=== PATIENT | female | born 1945 | race Caucasian/White ===

== ENCOUNTER 2022-11-03 13:27 | Outpatient (AMB) | payer MEDICARE, SELFPAY ==
[2022-11-03 14:09] VITALS: BP 126/74; PULSE 75; O2SAT 98; BMI 28.1
--- NOTE | 2022-11-03 14:09 | MHC.PC.OV ---
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 Transferring care from Dr Coleman Iniguez([facility]). Medical records have not been requested and have not received. Aboriginal Ceremonial Celebrant Required: No Survey Statistician: Not Required per policy Accompanied by: Self / Same As Patient Allergies No Known Allergies Allergy (Verified 11/09/22 15:50) Medication List - Last Reconciled 11/09/22 by Hitesh Anderson MD ascorbic acid (vitamin C) 500 mg PO DAILY aspirin 1 tab PO DAILY bupropion HCl 300 mg PO DAILY cholecalciferol (vitamin D3) 50 mcg PO DAILY levothyroxine 88 mcg PO DAILY lorazepam 1 mg PO BEDTIME PRN losartan 50 mg PO DAILY melatonin 10 mg PO BEDTIME multivitamin 1 tab PO DAILY Tobacco use date assessed: 11/03/22 Fall risk assessment: No Falls in past year Last assessed Fall Risk: 11/03/22 Dental Screening Dental Screen Date: 11/03/22 Did you have a dental visit in the last 12 months?: No Did you have a dental problem in the last 6 months where you did not have access to dental care?: No 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 She is transferring her care to us as her previous provider has left the area. Patient gives history of hypertrophic cardiomyopathy. She is getting a procedure done at [facility]. Her biomedical engineering director has ordered blood work that she would like done. Apart from this condition patient also suffers from anxiety. 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 1. Little interest or pleasure in doing things: more than half the days 2. Feeling down, depressed, or hopeless: nearly every day 3. Trouble falling or staying asleep, or sleeping too much: nearly every day 4. Feeling tired or having little energy: more than half the days 5. Poor appetite or overeating: not at all 6. Feeling bad about yourself - or that you are a failure or have let yourself or your family down: several days 7. Trouble concentrating on things, such as reading the newspaper or watching television: several days 8. Moving or speaking so slowly that other people could have noticed. Or the opposite - being so fidgety or restless that you have been moving around a lot more than usual: not at all 9. Thoughts that you would be better off or of hurting yourself in some way: nearly every day Total score: 15 Source: Developed by Drs. Wild Payan, Anette Ramirez, Isaiah Harry and colleagues, with an educational yelena from [employer]. AUDIT C Alcohol Use Questionnaire (AUDIT-C) 1. How often do you have a drink containing alcohol?: Monthly or less 2. How many drinks containing alcohol do you have on a typical day when you are drinking?: 1 or 2 Total Score: 1 SUSANNE-7 AMB Questionnaire SUSANNE-7 Date SUSANNE - 7 assessed: 11/03/22 Feeling nervous, anxious, or on edge: 3 = Nearly every day Not being able to stop or control worryin = Nearly every day Worrying too much about different things: 3 = Nearly every day Trouble relaxin = Nearly every day Being so restless that it is hard to sit still: 0 = Not at all Becoming easily annoyed or irritable: 2 = More than half the days Feeling afraid as if something awful might happen: 3 = Nearly every day Total SUSANNE-7 score (0-4 normal; 5-9 mild; 10-14 moderate; 15-21 severe): 17 Source: Developed by Drs. Wild Payan, Anette Ramirez, Isaiah Harry and colleagues, with an educational yelena from [employer]. Physical exam (Primary Care) Vital Signs: Last Vital Signs Pulse 75 11/03/22 14:09 BP 126/74 11/03/22 14:09 Pulse Ox 98 11/03/22 14:09 Oxygen Delivery Method Room Air 11/03/22 14:09 BMI result Body Mass Index 28.1 Tobacco/Smoking Status: Tobacco use Status Tobacco use date assessed 11/03/22 11/03/22 14:27 Patient Tobacco Use Status Former Tobacco user (1986) 11/03/22 14:27 e-Cigarette/Vaping Use Never Used 11/03/22 14:27 PHQ-9: PHQ-9 Score PHQ-9: Total score 15 11/03/22 14:27 Const General: cooperative, healthy appearing and comfortable HENMT Head: Yes normal to inspection and Yes atraumatic Eyes General: appearance normal, both eyes and all related structures Neck Neck: Yes normal visual inspection and Yes full ROM Chest Chest palpation & inspection: normal inspection of the chest and crepitus Resp Effort & Inspection: normal respiratory effort Auscultation: clear to auscultation bilaterally Cardio Jugular venous distension: no JVD Palpation: normal PMI Rate: regular rate Heart sounds: S1 normal heart sound present and S2 normal heart sound present GI Palpation (GI): Soft to palpation, Tenderness to palpation present (GI) and No hepatosplenomegaly present Extrem General: Yes normal to inspection and Yes full ROM Assessment and Plan Assessment & Plan (1) HOCM (hypertrophic obstructive cardiomyopathy): Code(s): I42.1 - Obstructive hypertrophic cardiomyopathy Plan: Blood work has been ordered. Will send the results to the biomedical engineering director. Continue current medications at same dosage. Orders: Orders Basic Metabolic Panel 11/03/22 I42.1 - Obstructive hypertrophic cardiomyopathy Lipid Panel 11/03/22 I42.1 - Obstructive hypertrophic cardiomyopathy Liver Panel 11/03/22 I42.1 - Obstructive hypertrophic cardiomyopathy Thyroid Stimulating Hormone 11/03/22 I42.1 - Obstructive hypertrophic cardiomyopathy Complete Blood Count no Diff 11/03/22 I42.1 - Obstructive hypertrophic cardiomyopathy Coding Level of Care Code New Pt Level 3 (98732) Diagnoses HOCM (hypertrophic obstructive cardiomyopathy) I42.1
== END 2022-11-03 15:04 | disposition home or self-care (01) ==
PROVIDERS: PCP Internal Medicine; Visit Provider Internal Medicine
DX: I42.1 Obstructive hypertrophic cardiomyopathy (principal)
CPT/HCPCS: 99203

== ENCOUNTER 2022-11-03 15:14 | Outpatient (REF) | payer MEDICARE, SELFPAY | END 2022-11-03 15:15 | disposition home or self-care (01) | LOC: HO.LAB 15:14 | PROVIDERS: PCP Internal Medicine; Visit Provider Internal Medicine | DX: I42.1 Obstructive hypertrophic cardiomyopathy (principal) | CPT/HCPCS: 36415; 80048; 80061; 80076; 84443; 85027 ==

== ENCOUNTER 2022-12-27 14:03 | Outpatient (AMB) | payer MEDICARE, SELFPAY ==
[2022-12-27 14:13] VITALS: BP 110/68; PULSE 69; O2SAT 98; BMI 28.7
--- NOTE | 2022-12-27 14:13 | MHC.PC.OV ---
Vital Signs 12/27/22 14:13 Height 5 ft 1.5 in Weight 154 lb 6 oz BMI 28.7 BP 110/68 Blood Pressure Location Lt brachial Position Sitting Pulse 69 Pulse Source Pulse Oximeter Pulse Oximetry (%) 98 Oxygen Delivery Method Room Air Intake Visit Reasons: Post Surgery Cuffer Required: No Accompanied by: Self / Same As Patient Allergies No Known Allergies Allergy (Verified 12/27/22 14:32) Medication List - Last Reconciled 12/27/22 by ARTIE Vega ascorbic acid (vitamin C) 500 mg PO DAILY cholecalciferol (vitamin D3) 50 mcg PO DAILY levothyroxine 88 mcg PO DAILY lorazepam 1 mg PO BEDTIME PRN losartan 50 mg PO DAILY melatonin 10 mg PO BEDTIME multivitamin 1 tab PO DAILY Tobacco use date assessed: 12/27/22 Fall risk assessment: No Falls in past year Last assessed Fall Risk: 12/27/22 Dental Screening Dental Screen Date: 12/27/22 Did you have a dental visit in the last 12 months?: No Did you have a dental problem in the last 6 months where you did not have access to dental care?: No Was dental information given to patient?: No HPI Post Surgery HPI Details Patient is a 77-year-old female who presents today to follow-up post cardiac surgery. Patient of Dr. Anderson, patient reports that she did not know that she will be seeing PRODUCT COMMUNICATIONS MANAGER today. Patient did have alcohol septal ablation by Dr. Castle at [facility] 11/10/2022-no medical records, will request records. Patient reports that then she was seen by her java user interface developer at [facility] Dr. Chin and diagnosed with AFib, patient reports that discharge notes from [facility] did not mention AFib - will also request records from cardiology. Patient reports that she was started on Eliquis by Cardiology in [facility] although she did not start this medication as she is waiting from cardiology to let her know about her recent blood work, encouraged patient to call her Cardiology in regards to this as well. Patient also have Cardiology at [facility] Dr. Jones. PHQ-9 score 15, patient denies SI or HI, patient reports that she is followed by Psychiatry Dr. Weldon - patient reports that Psychiatry mentioned possible TMS. Patient denies shortness of breath or chest pain. She reports still feeling tired after surgery. Patient has an upcoming appointment with [facility] Cardiology 02/23/2023. 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 1. Little interest or pleasure in doing things: more than half the days 2. Feeling down, depressed, or hopeless: nearly every day 3. Trouble falling or staying asleep, or sleeping too much: nearly every day 4. Feeling tired or having little energy: more than half the days 5. Poor appetite or overeating: not at all 6. Feeling bad about yourself - or that you are a failure or have let yourself or your family down: several days 7. Trouble concentrating on things, such as reading the newspaper or watching television: several days 8. Moving or speaking so slowly that other people could have noticed. Or the opposite - being so fidgety or restless that you have been moving around a lot more than usual: not at all 9. Thoughts that you would be better off or of hurting yourself in some way: nearly every day Total score: 15 Depression Screening Interpretation: Positive Depression Screening Follow-up: In treatment 93816 - PHQ-9 Billing: Yes Source: Developed by Drs. Wild Payan, Anette Ramirez, Isaiah Harry and colleagues, with an educational yelena from [employer]. Thrive Questionnaire Date Thrive assessed: 12/27/22 I am a: Patient What is your living situation today?: I have a steady place to live Within the past 12 months, did the food you bought not last and you didn't have the money to get more?: Never true Within the past 12 months, did you worry whether your food would run out before you got money to buy more?: Never true Do you have trouble paying for medicines?: No Do you have trouble getting transportation to medical appointments?: No Do you have trouble paying your heating and electricity bill?: No Do you have trouble taking care of your child, family member or friend?: No Do you have trouble with day-to-day activities such as bathing, preparing meals, shopping, managing finances, etc.?: No Are you currently unemployed and looking for a job?: No Are you interested in more education?: No Please select the resources that you would like help with: None Currently or been in a relationship where the following occur: no concerns reported AUDIT C Alcohol Use Questionnaire (AUDIT-C) 1. How often do you have a drink containing alcohol?: Monthly or less 2. How many drinks containing alcohol do you have on a typical day when you are drinking?: 1 or 2 Total Score: 1 Score Reviewed/Action Taken: No SUSANNE-7 AMB Questionnaire SUSANNE-7 Date SUSANNE - 7 assessed: 12/27/22 Feeling nervous, anxious, or on edge: 3 = Nearly every day Not being able to stop or control worryin = Nearly every day Worrying too much about different things: 3 = Nearly every day Trouble relaxin = Nearly every day Being so restless that it is hard to sit still: 0 = Not at all Becoming easily annoyed or irritable: 2 = More than half the days Feeling afraid as if something awful might happen: 3 = Nearly every day Total SUSANNE-7 score (0-4 normal; 5-9 mild; 10-14 moderate; 15-21 severe): 17 Source: Developed by Drs. Wild Payan, Anette Ramirez, Isaiah Harry and colleagues, with an educational yelena from [employer]. SUSANNE-7 Assessment Billing SUSANNE-7 Assessment Tool: SUSANNE-7 Assessment 10237 Review of Systems Const Denies body aches, Denies chills, Reports fatigue, Denies fever(s) and Denies headache(s) ENT Denies dizziness, Denies otalgia, Denies headache(s), Denies nasal discharge, Denies sinus pain and Denies sore throat Card Denies chest pain, Denies edema, Denies lightheadedness and Denies dyspnea Resp Denies cough, Denies dyspnea and Denies wheezing GI Denies abdominal pain Denies dysuria Musc Denies myalgias Skin/Breast Denies rash Neuro Denies dizziness and Denies headache(s) Endo Reports fatigue Aller/Immun Denies wheezing Physical exam (Primary Care) Vital Signs: Last Vital Signs Pulse 69 12/27/22 14:13 BP 110/68 12/27/22 14:13 Pulse Ox 98 12/27/22 14:13 Oxygen Delivery Method Room Air 12/27/22 14:13 BMI result Body Mass Index 28.7 Tobacco/Smoking Status: Tobacco use Status Tobacco use date assessed 12/27/22 12/27/22 14:24 Patient Tobacco Use Status Former Tobacco user (1986) 12/27/22 14:24 e-Cigarette/Vaping Use Never Used 12/27/22 14:24 PHQ-9: PHQ-9 Score PHQ-9: Total score 15 12/27/22 14:24 Depression Screening Interpretation: Positive Depression Screening Follow-up: In treatment Thrive Assessment: Date of Thrive Assessment Date Thrive assessed 12/27/22 12/27/22 14:24 Currently or been in a relationship where the following occur: no concerns reported Const General: cooperative and no acute distress Orientation/consciousness: patient oriented x3 HENMT Head: Yes normocephalic and Yes atraumatic Face and sinus: Yes sinuses nontender Mouth: oropharynx normal and moist mucous membranes Throat: Yes posterior oropharynx normal Eyes General: appearance normal, both eyes and all related structures Pupils: Equal, round and reactive pupils present Neck Neck: Yes normal visual inspection, Yes full ROM and Yes no lymphadenopathy Resp Effort & Inspection: normal respiratory effort and able to speak in complete sentences Auscultation: clear to auscultation bilaterally, no crackles, no rales, no rhonchi and no wheezes Cardio Rate: regular rate Rhythm: regular rhythm Heart sounds: S1 normal heart sound present, S2 normal heart sound present and no murmurs Peripheral pulses: radial pulses present on the right GI Auscultation: normal bowel sounds Skin General skin exam: no rashes or lesions noted Neuro General: patient oriented x3 Cranial nerves: Yes Equal, round and reactive pupils present Gait exam (Neuro): Normal gait present Extrem General: Yes full ROM and No edema Assessment and Plan Assessment & Plan (1) HOCM (hypertrophic obstructive cardiomyopathy): Comment: alcohol septal ablation by Dr. Castle at [facility] 11/10/2022 Code(s): I42.1 - Obstructive hypertrophic cardiomyopathy Plan: Patient did have alcohol septal ablation by Dr. Castle at [facility] 11/10/2022-no medical records, will request records.? Patient reports that then she was seen by her java user interface developer at [facility] Dr. Chin and diagnosed with AFib, patient reports that discharge notes from [facility] did not mention AFib - will also request records from cardiology.? Patient reports that she was started on Eliquis by Cardiology in [facility] although she did not start this medication as she is waiting from cardiology to let her know about her recent blood work, encouraged patient to call her Cardiology in regards to this as well.? Patient agreed with the plan. (2) Depression: Code(s): F32.A - Depression, unspecified Qualifiers: Depression Type: other depression Qualified Code(s): F32.89 - Other specified depressive episodes Plan: Continue to follow-up with Psychiatry Dr. Weldon Patient denies SI or HI Not interested in pharmacological intervention (3) Anxiety: Code(s): F41.9 - Anxiety disorder, unspecified Plan: Continue to follow-up with Psychiatry Dr. Weldon Plan Keep appointment with PCP as scheduled or follow-up sooner as needed. Coding Level of Care Code Est Pt Level 3 (96054) Diagnoses HOCM (hypertrophic obstructive cardiomyopathy) I42.1 Depression F32.89 Depression Type: other depression Anxiety F41.9 Additional Codes SUSANNE-7 Assessment Billing - SUSANNE-7 Assessment Tool: SUSANNE-7 Assessment [id number] ([id number])
== END 2022-12-27 14:55 | disposition home or self-care (01) ==
PROVIDERS: PCP Internal Medicine; Visit Provider Nurse Practitioner Family
DX: I42.1 Obstructive hypertrophic cardiomyopathy (principal); F32.89 Other specified depressive episodes; F41.9 Anxiety disorder, unspecified
CPT/HCPCS: 99213

== ENCOUNTER 2023-01-10 12:43 | Inpatient (IN) | payer MEDICARE, SELFPAY ==
[2023-01-10 12:59] VITALS: BP 146/77; PULSE 72; RESP 18; TEMP 36.9; O2SAT 97; BMI 28.8
--- NOTE | 2023-01-10 13:00 | ED_ITS ---
HPI - Psych General Chief Complaint: Psychiatric Symptoms Stated Complaint: crisis Time Seen by Provider: 01/10/23 13:26 Source: patient, RN notes reviewed and old records reviewed Mode of arrival: ambulatory Limitations: no limitations History of Present Illness HPI Narrative: This 77-year-old female presents for evaluation of suicidal ideation. Patient has a medical history significant for hypertrophic cardiomyopathy, paroxysmal atrial fibrillation, anxiety and depression She reports that her physical health has been declining since March when she was diagnosed with hypertrophic cardiomyopathy She reports a few months ago she was diagnosed with paroxysmal AFib Patient reports that due to her medical complications she is not as active as she was even last year She feels sedentary and like she has no brittany in life She states ?I am 77 years old I do not know why you can't just let me . ? She denies any specific plan to me. She expresses suicidality, however. She reports that a community criminal justice social worker encouraged her to come to the hospital for possible admission to the geriatric psych floor. Patient also indicates that she is not happy with her current housing situation Related Data Home Medications Medication Instructions Recorded Confirmed levothyroxine 88 mcg tablet 88 mcg PO DAILY 01/10/23 01/10/23 lorazepam 0.5 mg tablet 0.5 mg PO BID PRN anxiety 01/10/23 01/10/23 losartan 50 mg tablet 50 mg PO DAILY 01/10/23 01/10/23 melatonin 10 mg tablet 10 mg PO BEDTIME PRN Insomnia 01/10/23 01/10/23 Allergies Allergy/AdvReac Type Severity Reaction Status Date / Time No Known Allergies Allergy Verified 01/10/23 12:59 Review of Systems 2 Constitutional: Constitutional: Denies chills, Denies fever(s), Denies headache(s), Reports weakness and Reports weight gain Eyes: Eyes: Denies blurry vision ENT: Denies headache(s) Cardiovascular: Cardiovascular: Denies dyspnea Respiratory: Respiratory: Denies cough and Denies dyspnea Gastrointestinal: Gastrointestinal: Denies abdominal pain Genitourinary: Genitourinary: Denies difficulty voiding Musculoskeletal: Musculoskeletal: Denies back pain Integumentary/Breasts: Skin/Breast: Denies rash Neurologic: Denies headache(s) and Reports weakness PMFSH Social History Social History Advance Directives: No Advance Directives Information Provided: No Physical Exam 2 Vital Signs: Vital Signs: Last Vital Signs Temp 98.4 F 01/10/23 12:59 Pulse 72 01/10/23 12:59 Resp 18 01/10/23 14:12 BP 146/77 H 01/10/23 12:59 Pulse Ox 97 01/10/23 12:59 O2 Del Method Room Air 01/10/23 12:59 BMI result Body Mass Index 28.8 Const: General: healthy appearing, comfortable, no acute distress, alert and awake Nutritional Appearance: well nourished Orientation/consciousness: p atient oriented x3 HEENT: Head: Yes normocephalic and Yes atraumatic Eyes: Eyelids: Yes eyelids normal Conjunctivae: conjunctivae normal S clerae: sclerae normal Corneas: corneas normal Pupils: Equal, round and reactive pupils present EOM: EOMs intact bilaterally Neck: Neck: Yes full ROM Resp: Effort & Inspection: normal respiratory effort, able to speak in complete sentences and not labored Cardio: Rate: regular rate Rhythm: regular rhythm Skin: General skin exam: elasticity normal Neuro: General: patient oriented x3 Cranial nerves: Yes Equal, round and reactive pupils present and Yes Bilaterally intact EOM present Cognition (Neuro): normal cognition Course Course Course Narrative: RME: 77yo F w/no sig PMHx presenting to the ED c/o SI, I don't want to live anymore, I cannot handle my life. Reports medical crises. Reports SI w/desire for medical assisted suicide or to be injected w/Fentanyl or Hospice, but admits shes too afraid to do anything herself EKG, Labs, Tox screen, CARE team consult ordered Full HPI, ROS and PE to be performed by primary ED provider. Reevaluation(s) Reevaluation #1: Patient will be admitted to the psychiatric service for worsening depression with suicidal ideation Time: 18:31 Medical Decision Making Medical Decision Making MDM Narrative: 77-year-old female presents for evaluation of passive suicidal ideation. Her suicidal ideation seems to stem from her chronic medical issues. She denies any current chest pain or shortness of breath. She reports that she was recently diagnosed with atrial fibrillation but has not started taking her Eliquis because ?I just have a lot of questions at any to be answered before start taking them. ? Plan for medical clearance and care team evaluation for suicidal ideation. The patient's EKG is nonischemic Differential Diagnosis Differential Diagnoses: The differential diagnosis associated with the presentation includes Depression Suicidal ideation Bipolar disorder Anxiety Paroxysmal AFib Lab Data 01/10/23 14:04 01/10/23 14:04 Labs: Lab Results 01/10/23 01/10/23 01/10/23 Range/Units 13:42 14:04 14:51 WBC 8.5 (4.8-10.8) X10*3/uL RBC 4.58 (4.20-5.50) X10*6/uL Hgb 13.3 (12.0-16.0) g/dl Hct 38.4 (37.0-47.0) % MCV 83.8 (80.0-98.0) fL MCH 29.0 (27.0-33.0) pg MCHC 34.6 (31.0-35.0) g/dl RDW 14.7 (11.0-16.0) % Plt Count TNP MPV Not Reportable Immature Gran % (Auto) 0.6 H (0.0-0.4) % Neut % (Auto) 69.8 (45-73) % Lymph % (Auto) 22.6 (20-40) % [place] % (Auto) 5.2 (2-11) % Eos % (Auto) 1.1 (0-4) % Baso % (Auto) 0.7 (0-2) % Lymph # (Auto) 1.9 (1.2-4.9) X10*3/uL [place] # (Auto) 0.4 (0.1-1.2) X10*3/uL Eos # (Auto) 0.1 (0.0-0.4) X10*3/uL Baso # (Auto) 0.1 (0.0-0.2) X10*3/uL Abs Immat Gran (auto) 0.05 H (0.00-0.03) X10*3/uL Absolute Neuts (auto) 6.0 (2.0-8.3) x10*3/uL Absolute Nucleated RBC 0.000 (0.0-0.012) X10*3/uL Nucleated RBC % (auto) 0.0 (0.0-0.2) /100WBC Smear Tech's Comments VERIFIED Sodium 142 (135-145) mmol/L Potassium 3.8 (3.3-5.1) mmol/L Chloride 113 H (96-108) mmol/L Carbon Dioxide 21 L (22-29) mmol/L Anion Gap 12 (12-20) BUN 19 H (9-16) mg/dL Creatinine 0.87 (0.5-1.4) mg/dL Estim Creat Clear Calc 47.0 Estimated GFR > 60 Random Glucose 131 H (60-115) mg/dL Calcium 9.2 (8.4-10.2) mg/dL Total Bilirubin 0.6 (0.0-1.0) mg/dL Direct Bilirubin 0.2 (0.0-0.5) mg/dL AST 20 (5-31) U/L ALT 20 (0-31) U/L Alkaline Phosphatase 75 (39-117) U/L Total Protein 6.7 (6.5-8.0) g/dL Albumin 3.9 (3.5-5.0) g/dL Urine Color Yellow Urine Appearance Clear Urine pH 5.5 (5.0-9.0) Ur Specific [place] 1.020 (1.005-1.025) Urine Protein Negative (Neg-Trace) mg/dL Urine Glucose (UA) Negative (Negative) mg/dL Urine Ketones Negative (Negative) mg/dL Urine Blood Negative (Negative) Urine Nitrite Negative (Negative) Ur Leukocyte Esterase Small (1+) H (Negative) Urine RBC 3-5 H (0-2) /HPF Urine WBC 6-10 H (0-5) /HPF Ur Squamous Epith Cells 3-5 (0-2) /HPF Urine Bacteria None Seen (None Seen) Hyaline Casts 0-2 (0-2) /LPF Salicylates < 5.0 L (15-30) mg/dL Urine Opiates Screen Not Detected (Not Detect) Urine Fentanyl Screen Not Detected (Not Detect) Acetaminophen < 17 (<30) mcg/mL Ur Barbiturates Screen Not Detected (Not Detect) Ur Phencyclidine Scrn Not Detected (Not Detect) Ur Amphetamines Screen Not Detected (Not Detect) U Benzodiazepines Scrn Not Detected (Not Detect) Urine Cocaine Screen Not Detected (Not Detect) U Marijuana (THC) Screen Not Detected (Not Detect) Ethyl Alcohol < 10 mg/dL COVID-19 ([facility]) Negative (Negative) COVID-19 Clin Com See Note Independent Interpretation I performed an independent interpretation of an: EKG (Sinus rhythm with a rate of 73 beats per minute. Several premature atrial complexes noted. No acute ischemia) Discharge Plan Discharge Clinical Impression: Suicidal ideation Patient Disposition: Admitted As Inpatient Interventions: [place]-Suicide Risk Severity Scale Last Done: 01/10/23 14:12
--- NOTE | 2023-01-10 13:06 | ECG_ITS ---
Test Reason : CRISIS Blood Pressure : / mmHG Vent. Rate : 073 BPM Atrial Rate : 073 BPM P-R Int : 140 ms QRS Dur : 118 ms QT Int : 430 ms P-R-T Axes : 065 017 082 degrees QTc Int : 473 ms Sinus rhythm with Premature atrial complexes Possible Left atrial enlargement Right bundle branch block Abnormal ECG No previous ECGs available Referred By: Camilla Rodriges Electronically Signed By:DEMARCUS DARDEN
[2023-01-10 13:51] LABS: Appearance Urine Clear; Color Urine Yellow; Glucose Urine UA Negative (Negative); Leukocyte Esterase Urine Small (1+) (Negative); Nitrite Urine Negative (Negative); PH 5.5 (5.0-9.0); UMIC TRIGGER UACC YES; Urine Blood Negative (Negative); Urine Ketones Negative (Negative); Urine Protein Negative (Neg-Trace)
[2023-01-10 13:56] LABS: Amphetamine Screen Urine Not Detected (Not Detect); Bacteria Urine None Seen (None Seen); Barbiturates, Urine Not Detected (Not Detect); Benzodiazepines Screen Urine Not Detected (Not Detect); Cannabinoid Screen Urine Not Detected (Not Detect); Cocaine Screen Urine Not Detected (Not Detect); Fentanyl, urine Not Detected (Not Detect); Hyaline Casts Urine 0-2 /LPF (0-2); Opiate Screen Urine Not Detected (Not Detect); Phencyclidine Screen Urine Not Detected (Not Detect); UACC Culture Trigger YES
[2023-01-10 14:12] VITALS: RESP 18
[2023-01-10 14:12] LABS: Basophils Absolute Auto 0.1 X10*3/uL (0.0-0.2); Basophils Percent Auto 0.7 % (0-2); Eosinophils Absolute Auto 0.1 X10*3/uL (0.0-0.4); Eosinophils Percent Auto 1.1 % (0-4); Hematocrit 38.4 % (37.0-47.0); Hemoglobin 13.3 g/dl (12.0-16.0); Imm Gran Abs Auto 0.05 X10*3/uL (0.00-0.03); Imm Gran Pct Auto 0.6 % (0.0-0.4); Lymphocytes Absolute Auto 1.9 X10*3/uL (1.2-4.9); Lymphocytes Percent Auto 22.6 % (20-40); MANUAL DIFF FLAG SCAN; Mean Corpuscular HGB Conc 34.6 g/dl (31.0-35.0); Mean Corpuscular Volume 83.8 fL (80.0-98.0); Monocytes Absolute Auto 0.4 X10*3/uL (0.1-1.2); Monocytes Percent Auto 5.2 % (2-11); Neutrophils Percent Auto 69.8 % (45-73); PLT CLUMP 1; Red Blood Count 4.58 X10*6/uL (4.20-5.50); Red Cell Distribution Width 14.7 % (11.0-16.0); SCAN SMEAR FLAG 1
[2023-01-10 14:29] LABS: Acetaminophen LAB < 17 mcg/mL (<30); Alanine Aminotransferase 20 U/L (0-31); Albumin Level 3.9 g/dL (3.5-5.0); Alkaline Phosphatase 75 U/L (39-117); Anion Gap 12 (12-20); Aspartate Amino Transferase 20 U/L (5-31); Bilirubin Direct 0.2 mg/dL (0.0-0.5); Bilirubin Total 0.6 mg/dL (0.0-1.0); Blood Urea Nitrogen 19 mg/dL (9-16); Calcium 9.2 mg/dL (8.4-10.2); Carbon Dioxide 21 mmol/L (22-29); Chloride 113 mmol/L (96-108); Estimated Glomerular Filt Rate > 60; Ethanol < 10 mg/dL; Glucose Random 131 mg/dL (60-115); Potassium 3.8 mmol/L (3.3-5.1); Salicylate < 5.0 mg/dL (15-30); Sodium 142 mmol/L (135-145); Total Protein 6.7 g/dL (6.5-8.0)
[2023-01-10 14:38] LABS: White Blood Count 8.5 X10*3/uL (4.8-10.8)
[2023-01-10 14:39] LABS: SLIDE REVIEW VERIFIED
[2023-01-10 15:12] LABS: COVID-19 Test Negative (Negative); IDNOW Serial# 6674DD1D
--- NOTE | 2023-01-10 15:50 | PC.NURSE ---
Radha self presented to the emergency dept after stating she had a follow up phone call with [facility] after a recent trip to the emergency dept at [facility] for chest pain. Radha reports she was telling them that she was feeling hopeless and that she feels like just dying . Radha follows that up with stating she would not be able to do that to herself but wishes there was assisted suicide here as she feels like her heart isn't 100% and she doesn't feel as able to do all the things she used to enjoy. Radha has been calm and cooperative while on the unit. Steady gait and Radha is able to perform all of own ADL's. Radha verbalizes feeling like she would benefit from an admission on the older adult unit .
--- NOTE | 2023-01-10 17:39 | MHC.CARE ---
[employer] prior auth was requested from [employer] crisis.
[2023-01-10] MEDS: Psyllium seed 3.7 GM PACKET PO (19:34)
[2023-01-10 21:52] VITALS: BP 142/68; PULSE 69; RESP 17; TEMP 36.6
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
[2023-01-11] MEDS: Levothyroxine Sodium 88 MCG TABLET PO (06:10)
--- NOTE | 2023-01-11 08:48 | HO.PSYADMNOT ---
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 According to the crisis assessment, the patient was assessed for exacerbation of depressive symptoms and possible suicidality and next day did a follow-up and decided to call emergency services and transfer her into the emergency room for assessment. According to the crisis team, she had several losses, several members of 1st social network has in the last 6 years, her medical condition has worsened and now recently she has a cardiac condition that has impaired her to function properly in the community. When she was assessed by crisis, she reported that she wants to with dignity and she was thinking assisted suicide but she did not have a specific plan or intent. On interview, the patient reported that in the last 6 years several members of her social network such as friends and family have . She does not have children and she does not have a current partner. Also, she has some conflicts with her current landlord. She admitted that she has been struggling with depression for several years and she has been on treatment as an outpatient most of her adult night. Also she stated that she has PTSD for childhood trauma. She stated that she has hypertrophic cardiomyopathy and she recently had a procedure for ablation of AFib up. Since then, she reported that her capacity to walk or do activities of daily life have lowered. She adamantly denies suicidal ideation, she is able to contract for safety and she denies psychotic symptoms. She stated that she follows treatment with Dr. Luis Shore and she saw him 2 months ago. She stated that she has tried several antidepressants in the past and the last time that she was taking medications was Wellbutrin with poor infectivity. She has tried several SSRIs but she has never tried Cymbalta or Remeron. She was able to contract for safety in the facility. During the interview, the patient reported that she was feeling very distressed and angry since she expected that the facility would be more accommodating to her needs. She asked for a transferred to [facility]. I had permission to contact her primary psychiatrist and I called her doctor. Dr. Shore reported a long history of depression and confirm her long history of dysphoria, he stated that she had never been suicidal in the past and she has not tried Cymbalta. Past Psychiatric History: Never admitted into the hospital, she had been following outpatient services, her outpatient psychiatrist is Dr. Shore Medical Evaluation Reviewed: Yes [facility] Medical History (Updated 01/11/23 @ 15:24 by Terell Ye) Anxiety and depression Hypothyroidism Osteoporosis Paroxysmal atrial fibrillation Hypertension Family History: Denies Social History: Single, with no children, limited social support in the community Substance History: Denies Trauma History: Reports childhood trauma. Refused to elaborate Diagnostics Vital Signs (24Hr): Vital Signs - 24 hr 01/10/23 12:59 01/10/23 14:12 01/10/23 21:52 Temperature 98.4 F 97.9 F Pulse Rate 72 69 Respiratory Rate 18 18 17 Blood Pressure 146/77 H 142/68 H Pulse Oximetry 97 Oxygen Delivery Method Room Air Room Air BMI result Body Mass Index 28.8 Labs 01/10/23 14:04 01/10/23 14:04 Labs: Laboratory Results - last 48 hr 01/10/23 01/10/23 01/10/23 13:42 14:04 14:51 WBC 8.5 RBC 4.58 Hgb 13.3 Hct 38.4 MCV 83.8 MCH 29.0 MCHC 34.6 RDW 14.7 Plt Count TNP MPV Not Reportable Immature Gran % (Auto) 0.6 H Neut % (Auto) 69.8 Lymph % (Auto) 22.6 [place] % (Auto) 5.2 Eos % (Auto) 1.1 Baso % (Auto) 0.7 Lymph # (Auto) 1.9 [place] # (Auto) 0.4 Eos # (Auto) 0.1 Baso # (Auto) 0.1 Abs Immat Gran (auto) 0.05 H Absolute Neuts (auto) 6.0 Absolute Nucleated RBC 0.000 Nucleated RBC % (auto) 0.0 Smear Tech's Comments VERIFIED Sodium 142 Potassium 3.8 Chloride 113 H Carbon Dioxide 21 L Anion Gap 12 BUN 19 H Creatinine 0.87 Estim Creat Clear Calc 47.0 Estimated GFR > 60 Random Glucose 131 H Calcium 9.2 Total Bilirubin 0.6 Direct Bilirubin 0.2 AST 20 ALT 20 Alkaline Phosphatase 75 Total Protein 6.7 Albumin 3.9 Urine Color Yellow Urine Appearance Clear Urine pH 5.5 Ur Specific [place] 1.020 Urine Protein Negative Urine Glucose (UA) Negative Urine Ketones Negative Urine Blood Negative Urine Nitrite Negative Ur Leukocyte Esterase Small (1+) H Urine RBC 3-5 H Urine WBC 6-10 H Ur Squamous Epith Cells 3-5 Urine Bacteria None Seen Hyaline Casts 0-2 Salicylates < 5.0 L Urine Opiates Screen Not Detected Urine Fentanyl Screen Not Detected Acetaminophen < 17 Ur Barbiturates Screen Not Detected Ur Phencyclidine Scrn Not Detected Ur Amphetamines Screen Not Detected U Benzodiazepines Scrn Not Detected Urine Cocaine Screen Not Detected U Marijuana (THC) Screen Not Detected Ethyl Alcohol < 10 COVID-19 ([facility]) Negative COVID-19 Clin Com See Note Meds/Allergies Meds Home Medications Medication Instructions Recorded Confirmed Type levothyroxine 88 mcg tablet 88 mcg PO DAILY 01/10/23 01/10/23 History lorazepam 0.5 mg tablet 0.5 mg PO BID PRN anxiety 01/10/23 01/10/23 History losartan 50 mg tablet 50 mg PO DAILY 01/10/23 01/10/23 History melatonin 10 mg tablet 10 mg PO BEDTIME PRN Insomnia 01/10/23 01/10/23 History Allergies Allergies Allergy/AdvReac Type Severity Reaction Status Date / Time No Known Allergies Allergy Verified 01/10/23 12:59 Mental Status Exam Mental Status Exam Patient Appearance: Well Grooomed Patient Orientation: Person, Place, Time and Situation Level of Consciousness: Awake and Appropriate Patient Behavior: Guarded and Passive Mood Description: Calm Affect Description: Constricted Patient Cognition Impaired: Yes Ability to Follow Directions: Good Speech Pattern: Clear Hallucinations: None Delusions: Not Present Thought Process: Linear Thought Content: positive for Circumstantial Judgement: Fair Assessment & Plan Assessment & Plan (1) Major depressive disorder: Status: Acute Code(s): F32.9 - Major depressive disorder, single episode, unspecified (2) Posttraumatic stress disorder: Status: Acute Code(s): F43.10 - Post-traumatic stress disorder, unspecified (3) Personality disorder: Status: Acute Code(s): F60.9 - Personality disorder, unspecified Plan The patient is an elderly female with a past history of major depressive disorder and PTSD who was brought into the facility for exacerbation of depression with suicide passive suicidal ideation in the context of worsening of her medical conditions and lack of social support. At the moment of the interview the patient denies active suicidal ideation, she is able to contract for safety and she wanted to be discharged. Plan 1. We ready gather collateral information from her outpatient psychiatrist. She does not have prior history of suicidal ideation. 2. We discussed risks, benefits, side-effects and alternatives and she agreed to start Cymbalta 20 mg p.o. daily. 3. Start working on discharge plan. 4. Fifteen minutes checks since the patient is not actively suicidal. Patient educated on: diagnosis and therapeutic strategies Informed Consent: understands Reason for continued inpatient stay Substantial Risk for: inability to function, rapid decompensation and med/psych decompensation Statement Statement: I have reviewed the history and physical and performed a pertinent examination on my patient. No changes have occurred unless specified. If the History and Physical was not performed prior to admission, the Hospitalist's service will be consulted for completing the admission physical. Time Spent With Patient Time: Total time managing care of this patient today __45__ minutes.
[2023-01-11 10:33] VITALS: BP 175/86; PULSE 76; RESP 16; TEMP 36.6; O2SAT 96
--- NOTE | 2023-01-11 12:28 | P.CONHOSP_ITS ---
History of Present Illness Data of Consult Service Date: 01/11/23 Requesting physician: Terell Ye Primary Care Provider: Hitesh Anderson MD [facility] Reason for consult: afib medication evaluation 77-year-old female with history of HOCM, paroxysmal atrial fibrillation, hypothyroidism, osteoporosis, history NSTEMI, and anxiety depression admitted to Geriatric Psychiatry with consult placed to hospitalist service for medication evaluation for atrial fibrillation. The patient tells me and records reviewed from [facility] that she underwent cardiac catheterization on 04/21 due to NSTEMI. Cardiac catheterization revealed minimal luminal irregularities. Echocardiogram during that admission showed normal LV size with hyperdynamic systolic function with EF 70-80%. There was severely increased wall thickness more prominent in the interventricular septum with moderate mitral regurgitation and mild increase in pulmonary artery pressure. Cardiology recommended 7 day loop monitor. Following the cardiac catheterization was noted to have new onset atrial fibrillation and converted back to normal sinus rhythm. It was elected to hold off on anticoagulation until loop recorder studies were performed outpatient. She has been following with [facility] (Alisha) as well as [facility] (Altagracia). About two months ago underwent alcohol septal ablation at [facility]. After procedure again went into atrial fibrillation. I do not have records available from this procedure/clinic. [facility] cardiology then recommended eliquis, but patient has not started taking medication due to concerns and wishes to speak with the knot saw operator at [facility]. She is not on rate control meds but rate has been well controlled in the 60-70 and EKG shows NSR, rate 73 with PACs and RBBB. She denies any lightheadedness, palpitations, shortness of breath, or chest pains. She denies any GI bleeding in the last 3 months, denies any history intracranial hemorrhage, no known clotting/bleeding disorders, no recurrent falls. Review of Systems 2 Review of Systems: General: No fevers, malaise, unintentional weight loss HEENT: No epistaxis Cardiovascular: No chest pain, palpitations, or leg edema Respiratory: No shortness of breath, wheezing, cough GI: No melena, hematochezia, hematemesis Skin: No easy bruisability [facility], [facility] Medical History (Updated 01/11/23 @ 13:20 by REAL Hewitt) Anxiety and depression Hypothyroidism Osteoporosis Paroxysmal atrial fibrillation Hypertension Social History Household Members: None Housing: Other Housing Other:: patient states she is renting 2 rooms in a commune Do you presently have visiting nurse or other home services: No Patient Tobacco Use Status: Former Tobacco user Tobacco use type: Cigarette Smoked in Last 30 Days: No e-Cigarette/Vaping Use: Never Used Patient Interested in Nicotine Replacement: No Patient Given Instructions on How to Stop Smoking: No Date Education Initiated: 01/10/23 Second Hand Smoke Exposure: No Use of substances other than those prescribed or required for medical reasons: No Currently Displaying Signs/Symptoms of Drug Intoxication Withdrawal: No Any prior treatment program specific to substance use: No Have you been hit, kicked, punched, or otherwise hurt by someone within the past year? If so, by whom?: No Do you feel safe in your current relationship?: No Current Relationship Is there a partner from a previous relationship who is making you feel unsafe now?: No Are you made to feel afraid or neglected: No Spiritual Healthcare Practices: unknown Advance Directives: No Advance Directives Information Provided: No Do you have thoughts of harming others: None Do you have a plan to hurt others: No Plan Recently lost weight without trying: No Eating poorly because of decreased appetite: No Nutrition Risks: Binging/Purging Patient : No : No Poor oral hygiene: No Meds Allergies Allergy/AdvReac Type Severity Reaction Status Date / Time No Known Allergies Allergy Verified 01/10/23 12:59 Active Medications: Current Medications Acetaminophen (Acetaminophen 325 Mg Tablet) 650 mg PO Q6H PRN PRN Reason: Headache/Pain Mild Scale (1-3) Al Hydroxide/Mg Hydroxide (Magnesium Hydrox/Alum Hydrox 30 Ml Oral.Susp) 30 ml PO Q6H PRN PRN Reason: Heartburn/Nausea Levothyroxine Sodium (Levothyroxine Sodium 88 Mcg Tablet) 88 mcg PO DAILY@0600 [facility] Last Admin: 01/11/23 06:10 Dose: 88 mcg Lorazepam (Lorazepam 0.5 Mg Tablet) 0.5 mg PO BID PRN PRN Reason: anxiety Losartan Potassium (Losartan Potassium 50 Mg Tablet) 50 mg PO DAILY [facility]; Protocol Magnesium Hydroxide (Milk Of Magnesia 30 Ml Oral.Susp) 30 ml PO DAILY PRN PRN Reason: Constipation Melatonin (Melatonin 3 Mg Tablet) 9 mg PO BEDTIME PRN PRN Reason: Insomnia Trazodone HCl (Trazodone Hcl 25 Mg Halftab) 25 mg PO BEDTIME MRX1 PRN PRN Reason: Insomnia Home Medications Medication Instructions Recorded Confirmed Last Taken Type levothyroxine 88 mcg tablet 88 mcg PO DAILY 01/10/23 01/10/23 Unknown History lorazepam 0.5 mg tablet 0.5 mg PO BID PRN anxiety 01/10/23 01/10/23 Unknown History losartan 50 mg tablet 50 mg PO DAILY 01/10/23 01/10/23 Unknown History melatonin 10 mg tablet 10 mg PO BEDTIME PRN Insomnia 01/10/23 01/10/23 Unknown History Physical Exam 2 Vital Signs and Narrative: Vital Signs: Last Vital Signs Temp 97.8 F 01/11/23 10:33 Pulse 76 01/11/23 10:33 Resp 16 01/11/23 10:33 BP 175/86 H 01/11/23 10:33 Pulse Ox 96 01/11/23 10:33 O2 Del Method Room Air 01/11/23 10:33 BMI result Body Mass Index 28.8 Constitutional - Awake and Alert, No apparent distress Eyes - PERRLA, EOMI Cardiovascular - S1S2, RRR, No edema Respiratory - Normal lung expansion, Normal respiratory effort, No respiratory distress Extremities - no calf tenderness bilaterally, no swelling Skin - Warm/Dry Neurological - Alert & oriented x3 Results Labs 01/10/23 14:04 01/10/23 14:04 Labs: Laboratory Results - last 24 hr 01/10/23 01/10/23 01/10/23 13:42 14:04 14:51 MCV 83.8 MCH 29.0 MCHC 34.6 RDW 14.7 Plt Count TNP MPV Not Reportable Immature Gran % (Auto) 0.6 H Neut % (Auto) 69.8 Lymph % (Auto) 22.6 [place] % (Auto) 5.2 Eos % (Auto) 1.1 Baso % (Auto) 0.7 Lymph # (Auto) 1.9 [place] # (Auto) 0.4 Eos # (Auto) 0.1 Baso # (Auto) 0.1 Abs Immat Gran (auto) 0.05 H Absolute Neuts (auto) 6.0 Absolute Nucleated RBC 0.000 Nucleated RBC % (auto) 0.0 Smear Tech's Comments VERIFIED Anion Gap 12 Estim Creat Clear Calc 47.0 Estimated GFR > 60 Random Glucose 131 H Calcium 9.2 Total Bilirubin 0.6 Direct Bilirubin 0.2 AST 20 ALT 20 Alkaline Phosphatase 75 Total Protein 6.7 Albumin 3.9 Urine Color Yellow Urine Appearance Clear Urine pH 5.5 Ur Specific [place] 1.020 Urine Protein Negative Urine Glucose (UA) Negative Urine Ketones Negative Urine Blood Negative Urine Nitrite Negative Ur Leukocyte Esterase Small (1+) H Urine RBC 3-5 H Urine WBC 6-10 H Ur Squamous Epith Cells 3-5 Urine Bacteria None Seen Hyaline Casts 0-2 Salicylates < 5.0 L Urine Opiates Screen Not Detected Urine Fentanyl Screen Not Detected Acetaminophen < 17 Ur Barbiturates Screen Not Detected Ur Phencyclidine Scrn Not Detected Ur Amphetamines Screen Not Detected U Benzodiazepines Scrn Not Detected Urine Cocaine Screen Not Detected U Marijuana (THC) Screen Not Detected Ethyl Alcohol < 10 COVID-19 ([facility]) Negative COVID-19 Clin Com See Note Assessment and Plan (1) Paroxysmal atrial fibrillation: Status: Acute Plan 77-year-old female with history of HOCM, paroxysmal atrial fibrillation, hypothyroidism, osteoporosis, history NSTEMI, and anxiety depression admitted to Geriatric Psychiatry with consult placed to hospitalist service for medication evaluation for atrial fibrillation. [facility] records reviewed and history taken from patient. She appears to have 2 distinct episodes of atrial fibrillation, defined as paroxysmal by her knot saw operator. She is not on rate control medications but rate is well controlled. Reviewed EKG which showed normal sinus rhythm, rate 73 with occasional PACs and right bundle branch block. We discussed that given the atrial fibrillation she has had significantly increased risk of developing a stroke which could be permanently disabling or fatal. We discussed that given the recurrence of the atrial fibrillation, a.m. in agreement with her knot saw operator that she would benefit from the initiation of anticoagulation such as Eliquis which was prescribed. We discussed that recommendations to initiate Eliquis or evidence based and we use tools such as the chads Vasc risk score to determine that risk. Educated her on this risk stratification tool, her risk score is 4 and in this case she is an anticoagulation candidate to reduce risk of stroke. Discussed the contraindication to anticoagulation including recent clinically significant bleeding such as epistaxis or GI bleeding, blood/clotting disorders, prior intracranial hemorrhage, history intracranial/spinal tumors, or major trauma all of which she denied. We reviewed that her kidney function and liver function is acceptable for anticoagulation. Despite this Education, patient continues to decline the Eliquis and would like to speak with her cardiology at the [facility] which I think is appropriate. No further recommendations at this time. Thank you for allowing me to participate in this consult. Signing off at this time. Please do not hesitate to call for further questions. Time Spent With Patient Time: Total time managing care of this patient today ____ minutes.
--- NOTE | 2023-01-11 12:46 | MHC.CLN ---
NUTRITION PATIENT WITH CARDIOMYOPATHY AND AFIB. WOULD LIKE CARDIAC DIET. DIET CHANGED TO CARDIAC. STATED THAT FOLLOWS LOW FODMAPS DIET. ADVISED THAT WE DO NOT HAVE THAT DIET HERE, BUT CAN MAKE OWN MENU CHOICES. BINGE/PURGE BEHAVIOR REPORTED. FOLLOW WEEKLY FOR INTAKE.
[2023-01-11 19:30] VITALS: BP 179/84; PULSE 73; RESP 18; TEMP 36.9; O2SAT 99
[2023-01-11] MEDS: DULoxetine HCl 20 MG CAPSULE.DR PO (19:44)
[2023-01-11] MEDS: Losartan Potassium 50 MG TABLET PO (19:44)
[2023-01-11 21:42] VITALS: BP 156/75
[2023-01-11] MEDS: Melatonin 3 MG TABLET 9 MG PO (23:02)
[2023-01-11] MEDS: LORazepam 0.5 MG TABLET PO (23:02)
[2023-01-12] MEDS: Levothyroxine Sodium 88 MCG TABLET PO (06:22)
[2023-01-12 07:00] VITALS: BMI 28.7
--- NOTE | 2023-01-12 09:03 | HE.PHANOTE ---
RE: LOSARTAN DOSING MED REC ADJUSTED TO REFLECT LOSARTAN BEDTIME DOSING. WAS ENTERED FOR MORNING DOSING AND PT WAS UNHAPPY WITH THAT SHE TAKES AT BED AT HOME.
[2023-01-12 09:08] VITALS: BP 155/72; PULSE 60; RESP 18; TEMP 36.6; O2SAT 95
--- NOTE | 2023-01-12 11:05 | HO.PSYCHPN ---
Subjective Subjective Date of Service: 01/12/23 Reason For Visit: Depression Subjective Notes: Conditional Voluntary Interim History: The nursing staff reported the patient had been compliant with treatment, she slept well last night. On interview the patient reported that she is feeling worse since we start Cymbalta and she was expecting to get better on the 1st dose. I explained how antidepressants work and most likely we have to wait for therapeutic response. She adamantly denies suicidal ideation, the staff has noticed that she splits with staff. She stated that she had a bad night and she had been anxious. Even though no safety concerns at this moment Mental Status Exam Mental Status Exam Patient Appearance: Well Grooomed and Appropriate Patient Orientation: Person and Situation Level of Consciousness: Awake and Appropriate Patient Behavior: Appropriate and Cooperative Mood Description: Calm Affect Description: Constricted Patient Cognition Impaired: No Ability to Follow Directions: Good Speech Pattern: Clear Hallucinations: None Delusions: Not Present Thought Process: Intact Thought Content: positive for Circumstantial Judgement: Fair Diagnostics Vital Signs (24Hr): Vital Signs - 24 hr 01/11/23 19:30 01/11/23 21:42 01/12/23 09:08 Temperature 98.4 F 97.8 F Pulse Rate 73 60 Respiratory Rate 18 18 Blood Pressure 179/84 H 156/75 H 155/72 H Pulse Oximetry 99 95 Oxygen Delivery Method Room Air Room Air BMI result Body Mass Index 28.8 Labs 01/10/23 14:04 01/10/23 14:04 Labs: Laboratory Results - last 48 hr 01/10/23 01/10/23 01/10/23 13:42 14:04 14:51 WBC 8.5 RBC 4.58 Hgb 13.3 Hct 38.4 MCV 83.8 MCH 29.0 MCHC 34.6 RDW 14.7 Plt Count TNP MPV Not Reportable Immature Gran % (Auto) 0.6 H Neut % (Auto) 69.8 Lymph % (Auto) 22.6 [place] % (Auto) 5.2 Eos % (Auto) 1.1 Baso % (Auto) 0.7 Lymph # (Auto) 1.9 [place] # (Auto) 0.4 Eos # (Auto) 0.1 Baso # (Auto) 0.1 Abs Immat Gran (auto) 0.05 H Absolute Neuts (auto) 6.0 Absolute Nucleated RBC 0.000 Nucleated RBC % (auto) 0.0 Smear Tech's Comments VERIFIED Sodium 142 Potassium 3.8 Chloride 113 H Carbon Dioxide 21 L Anion Gap 12 BUN 19 H Creatinine 0.87 Estim Creat Clear Calc 47.0 Estimated GFR > 60 Random Glucose 131 H Calcium 9.2 Total Bilirubin 0.6 Direct Bilirubin 0.2 AST 20 ALT 20 Alkaline Phosphatase 75 Total Protein 6.7 Albumin 3.9 Urine Color Yellow Urine Appearance Clear Urine pH 5.5 Ur Specific [place] 1.020 Urine Protein Negative Urine Glucose (UA) Negative Urine Ketones Negative Urine Blood Negative Urine Nitrite Negative Ur Leukocyte Esterase Small (1+) H Urine RBC 3-5 H Urine WBC 6-10 H Ur Squamous Epith Cells 3-5 Urine Bacteria None Seen Hyaline Casts 0-2 Salicylates < 5.0 L Urine Opiates Screen Not Detected Urine Fentanyl Screen Not Detected Acetaminophen < 17 Ur Barbiturates Screen Not Detected Ur Phencyclidine Scrn Not Detected Ur Amphetamines Screen Not Detected U Benzodiazepines Scrn Not Detected Urine Cocaine Screen Not Detected U Marijuana (THC) Screen Not Detected Ethyl Alcohol < 10 COVID-19 ([facility]) Negative COVID-19 Clin Com See Note Medications Medications Current Medications Acetaminophen (Acetaminophen 325 Mg Tablet) 650 mg PO Q6H PRN PRN Reason: Headache/Pain Mild Scale (1-3) Al Hydroxide/Mg Hydroxide (Magnesium Hydrox/Alum Hydrox 30 Ml Oral.Susp) 30 ml PO Q6H PRN PRN Reason: Heartburn/Nausea Duloxetine HCl (Duloxetine Hcl 20 Mg Capsule.Dr) 20 mg PO BEDTIME [facility] Last Admin: 01/11/23 19:44 Dose: 20 mg Levothyroxine Sodium (Levothyroxine Sodium 88 Mcg Tablet) 88 mcg PO DAILY@0600 [facility] Last Admin: 01/12/23 06:22 Dose: 88 mcg Lorazepam (Lorazepam 0.5 Mg Tablet) 0.5 mg PO BID PRN PRN Reason: anxiety Last Admin: 01/11/23 23:02 Dose: 0.5 mg Losartan Potassium (Losartan Potassium 50 Mg Tablet) 50 mg PO BEDTIME [facility]; Protocol Magnesium Hydroxide (Milk Of Magnesia 30 Ml Oral.Susp) 30 ml PO DAILY PRN PRN Reason: Constipation Melatonin (Melatonin 3 Mg Tablet) 9 mg PO BEDTIME PRN PRN Reason: Insomnia Last Admin: 01/11/23 23:02 Dose: 9 mg Trazodone HCl (Trazodone Hcl 25 Mg Halftab) 25 mg PO BEDTIME MRX1 PRN PRN Reason: Insomnia Allergies Allergies Allergy/AdvReac Type Severity Reaction Status Date / Time No Known Allergies Allergy Verified 01/10/23 12:59 Assessment & Plan Assessment & Plan (1) Major depressive disorder: Status: Acute Code(s): F32.9 - Major depressive disorder, single episode, unspecified (2) Posttraumatic stress disorder: Status: Acute Code(s): F43.10 - Post-traumatic stress disorder, unspecified (3) Personality disorder: Status: Acute Code(s): F60.9 - Personality disorder, unspecified Plan The patient is an elderly female with a past history of major depressive disorder and PTSD who was brought into the facility for exacerbation of depression with suicide passive suicidal ideation in the context of worsening of her medical conditions and lack of social support. At the moment of the interview the patient denies active suicidal ideation, she is able to contract for safety and she wanted to be discharged. Plan 1. We ready gather collateral information from her outpatient psychiatrist. She does not have prior history of suicidal ideation. 2. We discussed risks, benefits, side-effects and alternatives and she agreed to start Cymbalta 20 mg p.o. daily. We are going to increase up to 30 mg p.o. q.h.s. on January 12 3. Start working on discharge plan. 4. Fifteen minutes checks since the patient is not actively suicidal. 5. Discontinue trazodone and start p.r.n. Ambien 5 mg p.o. q.h.s. insomnia. Reason for continued inpatient stay Substantial Risk for: inability to function, rapid decompensation and med/psych decompensation Time Spent With Patient Time: Total time managing care of this patient today __20__ minutes.
[2023-01-12 18:00] VITALS: BP 160/90; PULSE 76; RESP 17; TEMP 36.2; O2SAT 76
[2023-01-12] MEDS: DULoxetine HCl 20 MG CAPSULE.DR PO (19:57)
[2023-01-12] MEDS: Losartan Potassium 50 MG TABLET PO (19:57)
[2023-01-12] MEDS: Melatonin 3 MG TABLET 9 MG PO (22:49)
[2023-01-12] MEDS: LORazepam 0.5 MG TABLET PO (22:49)
[2023-01-12] MEDS: Zolpidem Tartrate 5 MG TABLET PO (22:50)
[2023-01-13] MEDS: Levothyroxine Sodium 88 MCG TABLET PO (06:27)
[2023-01-13 10:11] VITALS: BP 163/83; PULSE 75; RESP 20; TEMP 36.2; O2SAT 99
--- NOTE | 2023-01-13 10:45 | PC.NURSE ---
BP 163/83, patient asymptomatic. Dr. Ye notified of blood pressure.
--- NOTE | 2023-01-13 15:23 | P.PNPSI_ITS ---
Subjective Subjective Date of Service: 01/13/23 Reason For Visit: Depression Subjective Notes: Conditional Voluntary Interim History: The nursing staff reported the patient declined her breakfast yesterday. She had been extremely anxious regarding her high blood pressure but her blood pressure was not over 165. I psycho educated into the pressure another cardiac conditions. The mental health social worker reported that she has try to get more collateral information from her acquaintances and friends. So far she is safe and we were thinking on discharge early this next Monday. On interview the patient denies new symptoms she is willing to explore the possibility of signing a MOLST for Monday. Mental Status Exam Mental Status Exam Patient Appearance: Well Grooomed and Appropriate Patient Orientation: Person and Situation Level of Consciousness: Awake and Appropriate Patient Behavior: Guarded and Passive Mood Description: Constricted Affect Description: Calm Patient Cognition Impaired: Yes Ability to Follow Directions: Good Speech Pattern: Clear Hallucinations: None Delusions: Not Present Thought Process: Distracted and Evasive Thought Content: positive for [place] and positive for Poverty of Content Judgement: Fair Diagnostics Vital Signs (24Hr): Vital Signs - 24 hr 01/12/23 18:00 01/13/23 10:11 Temperature 97.2 F 97.2 F Pulse Rate 76 75 Respiratory Rate 17 20 Blood Pressure 160/90 H 163/83 H Pulse Oximetry 76 L 99 Oxygen Delivery Method Room Air Room Air BMI result Body Mass Index 28.7 Labs 01/10/23 14:04 01/10/23 14:04 Medications Medications Current Medications Acetaminophen (Acetaminophen 325 Mg Tablet) 650 mg PO Q6H PRN PRN Reason: Headache/Pain Mild Scale (1-3) Al Hydroxide/Mg Hydroxide (Magnesium Hydrox/Alum Hydrox 30 Ml Oral.Susp) 30 ml PO Q6H PRN PRN Reason: Heartburn/Nausea Duloxetine HCl (Duloxetine Hcl 20 Mg Capsule.Dr) 20 mg PO BEDTIME [facility] Last Admin: 01/12/23 19:57 Dose: 20 mg Levothyroxine Sodium (Levothyroxine Sodium 88 Mcg Tablet) 88 mcg PO DAILY@0600 [facility] Last Admin: 01/13/23 06:27 Dose: 88 mcg Lorazepam (Lorazepam 0.5 Mg Tablet) 0.5 mg PO BID PRN PRN Reason: anxiety Last Admin: 01/12/23 22:49 Dose: 0.5 mg Losartan Potassium (Losartan Potassium 50 Mg Tablet) 50 mg PO BEDTIME [facility]; Protocol Last Admin: 01/12/23 19:57 Dose: 50 mg Magnesium Hydroxide (Milk Of Magnesia 30 Ml Oral.Susp) 30 ml PO DAILY PRN PRN Reason: Constipation Melatonin (Melatonin 3 Mg Tablet) 9 mg PO BEDTIME PRN PRN Reason: Insomnia Last Admin: 01/12/23 22:49 Dose: 9 mg Zolpidem Tartrate (Zolpidem Tartrate 5 Mg Tablet) 5 mg PO BEDTIME PRN PRN Reason: Insomnia Last Admin: 01/12/23 22:50 Dose: 5 mg Allergies Allergies Allergy/AdvReac Type Severity Reaction Status Date / Time No Known Allergies Allergy Verified 01/10/23 12:59 Assessment & Plan Assessment & Plan (1) Major depressive disorder: Status: Acute Code(s): F32.9 - Major depressive disorder, single episode, unspecified (2) Posttraumatic stress disorder: Status: Acute Code(s): F43.10 - Post-traumatic stress disorder, unspecified (3) Personality disorder: Status: Acute Code(s): F60.9 - Personality disorder, unspecified Plan The patient is an elderly female with a past history of major depressive disorder and PTSD who was brought into the facility for exacerbation of depression with suicide passive suicidal ideation in the context of worsening of her medical conditions and lack of social support. At the moment of the interview the patient denies active suicidal ideation, she is able to contract for safety and she wanted to be discharged. Plan 1. We ready gather collateral information from her outpatient psychiatrist. She does not have prior history of suicidal ideation. 2. We discussed risks, benefits, side-effects and alternatives and she agreed to start Cymbalta 20 mg p.o. daily. We are going to increase up to 30 mg p.o. q.h.s. on January 12 3. Start working on discharge plan. 4. Fifteen minutes checks since the patient is not actively suicidal. 5. Discontinue trazodone and start p.r.n. Ambien 5 mg p.o. q.h.s. insomnia. Reason for continued inpatient stay Substantial Risk for: inability to function, rapid decompensation and med/psych decompensation Time Spent With Patient Time: Total time managing care of this patient today _20___ minutes.
[2023-01-13] MEDS: Psyllium seed 3.7 GM PACKET PO (18:09)
[2023-01-13 18:41] LABS: Appearance Urine Clear; Color Urine Yellow; Glucose Urine UA Negative (Negative); Leukocyte Esterase Urine Moderate (2+) (Negative); Nitrite Urine Negative (Negative); PH 5.5 (5.0-9.0); UMIC TRIGGER UACC YES; Urine Blood Negative (Negative); Urine Ketones Negative (Negative); Urine Protein Negative (Neg-Trace)
[2023-01-13 20:15] VITALS: BP 187/90; PULSE 68; RESP 18; TEMP 36.4; O2SAT 97
[2023-01-13] MEDS: Melatonin 3 MG TABLET 9 MG PO ×2 (20:33→22:33)
[2023-01-13] MEDS: Losartan Potassium 50 MG TABLET PO (20:35)
[2023-01-13] MEDS: DULoxetine HCl 20 MG CAPSULE.DR PO (20:35)
[2023-01-13 21:00] VITALS: BP 162/77; PULSE 78; RESP 16; TEMP 36.6; O2SAT 98
[2023-01-13 21:43] LABS: Bacteria Urine 2+ (None Seen); Hyaline Casts Urine 0-2 /LPF (0-2); RBC Urine 0-2 /HPF (0-2); UACC Culture Trigger YES
[2023-01-13 22:01] VITALS: BP 162/77
[2023-01-13] MEDS: Zolpidem Tartrate 5 MG TABLET PO (22:34)
[2023-01-13] MEDS: LORazepam 1 MG TABLET PO (22:35)
[2023-01-14] MEDS: Levothyroxine Sodium 88 MCG TABLET PO (06:19)
[2023-01-14 10:24] VITALS: BP 123/67; PULSE 69; RESP 16; TEMP 36.8; O2SAT 96
[2023-01-14 18:00] VITALS: BP 149/81; PULSE 76; RESP 16; TEMP 36.7; O2SAT 96
--- NOTE | 2023-01-14 20:27 | P.PNPSI_ITS ---
Subjective Subjective Date of Service: 01/14/23 Reason For Visit: Depression Interim History: Pt slept through the night. She is in bed, reading. She reports feeling depressed, tasks are a burden for her due to her depressed mood. She does indeed presents as future oriented. Pt does not think milieu meets her needs, which seems reasonable as pt much more functional and seems to respond to insight base therapy. No SI/HI. Review of Systems Review of Systems General: No fevers, malaise, unintentional weight loss HEENT: No epistaxis Cardiovascular: No chest pain, palpitations, or leg edema Respiratory: No shortness of breath, wheezing, cough GI: No melena, hematochezia, hematemesis Skin: No easy bruisability Constitutional: Denies chills, Denies fever(s), Denies headache(s), Reports weakness and Reports weight gain Eyes: Denies blurry vision Denies headache(s) Cardiovascular: Denies dyspnea Respiratory: Denies cough and Denies dyspnea Gastrointestinal: Denies abdominal pain Musculoskeletal: Denies back pain Skin/Breast: Denies rash Denies headache(s) and Reports weakness Mental Status Exam Mental Status Exam Patient Appearance: Well Grooomed and Appropriate Patient Orientation: Person and Situation Level of Consciousness: Awake and Appropriate Patient Behavior: Guarded and Passive Mood Description: Constricted Affect Description: Calm Patient Cognition Impaired: Yes Ability to Follow Directions: Good Speech Pattern: Clear Diagnostics Vital Signs (24Hr): Vital Signs - 24 hr 01/13/23 21:00 01/13/23 22:01 01/14/23 10:24 Temperature 97.9 F 98.2 F Pulse Rate 78 69 Respiratory Rate 16 16 Blood Pressure 162/77 H 162/77 H 123/67 Pulse Oximetry 98 96 Oxygen Delivery Method Room Air Room Air BMI result Body Mass Index 28.7 Labs 01/10/23 14:04 01/10/23 14:04 Labs: Laboratory Results - last 48 hr 01/13/23 18:11 Urine Color Yellow Urine Appearance Clear Urine pH 5.5 Ur Specific [place] 1.020 Urine Protein Negative Urine Glucose (UA) Negative Urine Ketones Negative Urine Blood Negative Urine Nitrite Negative Ur Leukocyte Esterase Moderate (2+) H Urine RBC 0-2 Urine WBC 6-10 H Ur Squamous Epith Cells 3-5 Urine Bacteria 2+ Hyaline Casts 0-2 Medications Medications Current Medications Acetaminophen (Acetaminophen 325 Mg Tablet) 650 mg PO Q6H PRN PRN Reason: Headache/Pain Mild Scale (1-3) Al Hydroxide/Mg Hydroxide (Magnesium Hydrox/Alum Hydrox 30 Ml Oral.Susp) 30 ml PO Q6H PRN PRN Reason: Heartburn/Nausea Duloxetine HCl (Duloxetine Hcl 20 Mg Capsule.Dr) 20 mg PO BEDTIME DIANNE Last Admin: 01/13/23 20:35 Dose: 20 mg Levothyroxine Sodium (Levothyroxine Sodium 88 Mcg Tablet) 88 mcg PO DAILY@0600 [facility] Last Admin: 01/14/23 06:19 Dose: 88 mcg Lorazepam (Lorazepam 0.5 Mg Tablet) 0.5 mg PO BEDTIME MRX1 PRN PRN Reason: anxiety Lorazepam (Lorazepam 0.5 Mg Tablet) 0.5 mg PO DAILY PRN PRN Reason: Anxiety Losartan Potassium (Losartan Potassium 50 Mg Tablet) 50 mg PO BEDTIME [facility]; Protocol Last Admin: 01/13/23 20:35 Dose: 50 mg Magnesium Hydroxide (Milk Of Magnesia 30 Ml Oral.Susp) 30 ml PO DAILY PRN PRN Reason: Constipation Melatonin (Melatonin 3 Mg Tablet) 9 mg PO BEDTIME PRN PRN Reason: Insomnia Last Admin: 01/13/23 22:33 Dose: 9 mg Psyllium Hydrophilic Mucilloid (Psyllium Seed 3.7 Gm Packet) 3.7 gm PO DAILY [facility] Last Admin: 01/14/23 12:52 Dose: Not Given Zolpidem Tartrate (Zolpidem Tartrate 5 Mg Tablet) 5 mg PO BEDTIME PRN PRN Reason: Insomnia Last Admin: 01/13/23 22:34 Dose: 5 mg Allergies Allergies Allergy/AdvReac Type Severity Reaction Status Date / Time No Known Allergies Allergy Verified 01/10/23 12:59 Assessment & Plan Assessment & Plan (1) Major depressive disorder: Status: Acute Code(s): F32.9 - Major depressive disorder, single episode, unspecified (2) Posttraumatic stress disorder: Status: Acute Code(s): F43.10 - Post-traumatic stress disorder, unspecified (3) Personality disorder: Status: Acute Code(s): F60.9 - Personality disorder, unspecified Plan The patient is an elderly female with a past history of major depressive disorder and PTSD who was brought into the facility for exacerbation of depression with suicide passive suicidal ideation in the context of worsening of her medical conditions and lack of social support. At the moment of the interview the patient denies active suicidal ideation, she is able to contract for safety and she wanted to be discharged. Plan 01/14 continue tx. Reason for continued inpatient stay Substantial Risk for: inability to function Time Spent With Patient Time: Total time managing care of this patient today ____ minutes.
[2023-01-14] MEDS: Losartan Potassium 50 MG TABLET PO (20:29)
[2023-01-14] MEDS: DULoxetine HCl 20 MG CAPSULE.DR PO (20:29)
[2023-01-14] MEDS: Melatonin 3 MG TABLET 9 MG PO (22:24)
[2023-01-14] MEDS: LORazepam 0.5 MG TABLET PO ×2 (22:25→22:36)
[2023-01-14] MEDS: Zolpidem Tartrate 5 MG TABLET PO (22:26)
[2023-01-15] MEDS: Levothyroxine Sodium 88 MCG TABLET PO (05:54)
[2023-01-15 18:00] VITALS: BP 127/68; PULSE 70; RESP 16; TEMP 36.8; O2SAT 97
[2023-01-15] MEDS: LORazepam 0.5 MG TABLET PO ×2 (19:52→22:32)
[2023-01-15] MEDS: DULoxetine HCl 20 MG CAPSULE.DR PO (19:54)
[2023-01-15] MEDS: Losartan Potassium 50 MG TABLET PO (19:55)
--- NOTE | 2023-01-15 20:13 | HO.PSYCHPN ---
Subjective Subjective Date of Service: 01/15/23 Reason For Visit: Depression Subjective Notes: Conditional Voluntary Interim History: Pt slept through the night. She continues to spend most of the day in bed, reading, in NAD. She continues to reports feeling depressed, tasks are a burden for her due to her depressed mood. She continues to present as future oriented. Pt does not think milieu meets her needs, which seems reasonable as pt much more functional and seems to respond to insight based therapy. No SI/HI. Review of Systems Review of Systems General: No fevers, malaise, unintentional weight loss HEENT: No epistaxis Cardiovascular: No chest pain, palpitations, or leg edema Respiratory: No shortness of breath, wheezing, cough GI: No melena, hematochezia, hematemesis Skin: No easy bruisability Constitutional: Denies chills, Denies fever(s), Denies headache(s), Reports weakness and Reports weight gain Eyes: Denies blurry vision Denies headache(s) Cardiovascular: Denies dyspnea Respiratory: Denies cough and Denies dyspnea Gastrointestinal: Denies abdominal pain Musculoskeletal: Denies back pain Skin/Breast: Denies rash Denies headache(s) and Reports weakness Mental Status Exam Mental Status Exam Patient Appearance: Well Grooomed and Appropriate Patient Orientation: Person and Situation Level of Consciousness: Awake and Appropriate Patient Behavior: Guarded and Passive Mood Description: Constricted Affect Description: Calm Patient Cognition Impaired: Yes Ability to Follow Directions: Good Speech Pattern: Clear Diagnostics Vital Signs (24Hr): BMI result Body Mass Index 28.7 Labs 01/10/23 14:04 01/10/23 14:04 Labs: Laboratory Results - last 48 hr 01/13/23 18:11 Urine RBC 0-2 Urine WBC 6-10 H Ur Squamous Epith Cells 3-5 Urine Bacteria 2+ Hyaline Casts 0-2 Medications Medications Current Medications Acetaminophen (Acetaminophen 325 Mg Tablet) 650 mg PO Q6H PRN PRN Reason: Headache/Pain Mild Scale (1-3) Al Hydroxide/Mg Hydroxide (Magnesium Hydrox/Alum Hydrox 30 Ml Oral.Susp) 30 ml PO Q6H PRN PRN Reason: Heartburn/Nausea Duloxetine HCl (Duloxetine Hcl 20 Mg Capsule.Dr) 20 mg PO BEDTIME DIANNE Last Admin: 01/15/23 19:54 Dose: 20 mg Levothyroxine Sodium (Levothyroxine Sodium 88 Mcg Tablet) 88 mcg PO DAILY@0600 [facility] Last Admin: 01/15/23 05:54 Dose: 88 mcg Lorazepam (Lorazepam 0.5 Mg Tablet) 0.5 mg PO BEDTIME MRX1 PRN PRN Reason: anxiety Last Admin: 01/14/23 22:36 Dose: 0.5 mg Lorazepam (Lorazepam 0.5 Mg Tablet) 0.5 mg PO DAILY PRN PRN Reason: Anxiety Losartan Potassium (Losartan Potassium 50 Mg Tablet) 50 mg PO BEDTIME DIANNE; Protocol Last Admin: 01/15/23 19:55 Dose: 50 mg Magnesium Hydroxide (Milk Of Magnesia 30 Ml Oral.Susp) 30 ml PO DAILY PRN PRN Reason: Constipation Melatonin (Melatonin 3 Mg Tablet) 9 mg PO BEDTIME PRN PRN Reason: Insomnia Last Admin: 01/14/23 22:24 Dose: 9 mg Psyllium Hydrophilic Mucilloid (Psyllium Seed 3.7 Gm Packet) 3.7 gm PO DAILY [facility] Last Admin: 01/14/23 12:52 Dose: Not Given Zolpidem Tartrate (Zolpidem Tartrate 5 Mg Tablet) 5 mg PO BEDTIME PRN PRN Reason: Insomnia Last Admin: 01/14/23 22:26 Dose: 5 mg Allergies Allergies Allergy/AdvReac Type Severity Reaction Status Date / Time No Known Allergies Allergy Verified 01/10/23 12:59 Assessment & Plan Assessment & Plan (1) Major depressive disorder: Status: Acute Code(s): F32.9 - Major depressive disorder, single episode, unspecified (2) Posttraumatic stress disorder: Status: Acute Code(s): F43.10 - Post-traumatic stress disorder, unspecified (3) Personality disorder: Status: Acute Code(s): F60.9 - Personality disorder, unspecified Plan The patient is an elderly female with a past history of major depressive disorder and PTSD who was brought into the facility for exacerbation of depression with suicide passive suicidal ideation in the context of worsening of her medical conditions and lack of social support. At the moment of the interview the patient denies active suicidal ideation, she is able to contract for safety and she wanted to be discharged. Plan 01/15 continue tx. Reason for continued inpatient stay Substantial Risk for: stable for discharge Time Spent With Patient Time: Total time managing care of this patient today ____ minutes.
[2023-01-15] MEDS: Melatonin 3 MG TABLET 9 MG PO (22:31)
[2023-01-15] MEDS: Zolpidem Tartrate 5 MG TABLET PO (22:32)
[2023-01-16] MEDS: LORazepam 0.5 MG TABLET PO (04:03)
[2023-01-16] MEDS: Levothyroxine Sodium 88 MCG TABLET PO (04:03)
[2023-01-16 09:12] VITALS: BP 130/62; PULSE 67; RESP 16; TEMP 37; O2SAT 95
--- NOTE | 2023-01-16 11:33 | PM.PSYDC ---
DS: Providers Provider Date of Service: 01/16/23 Date of admission: 01/10/23 18:12 Date of discharge: 01/16/23 Primary care physician: Hitesh Anderson MD Consults: 01/10/23 21:52 Consult to Hospitalist Routine Comment: Consulting Provider: Hospitalist Reason For Exam: recently dx with Afib; med management Attending physician on discharge: Terell Ye DS: Diagnosis Discharge Diagnosis (1) Major depressive disorder: Status: Acute (2) Posttraumatic stress disorder: Status: Acute (3) Personality disorder: Status: Acute DS: Medications Discharge Medications Home Medications: Home Medications Medication Instructions Recorded Confirmed levothyroxine 88 mcg tablet 88 mcg PO DAILY 01/10/23 01/10/23 lorazepam 0.5 mg tablet 0.5 mg PO BID PRN anxiety 01/10/23 01/10/23 losartan 50 mg tablet 50 mg PO BEDTIME 01/10/23 01/12/23 melatonin 10 mg tablet 10 mg PO BEDTIME PRN Insomnia 01/10/23 01/10/23 Mental Status Exam Mental Status Exam Patient Appearance: Well Grooomed and Appropriate Patient Orientation: Person, Place, Time and Situation Level of Consciousness: Awake and Appropriate Patient Behavior: Appropriate and Passive Mood Description: Calm Affect Description: Constricted Patient Cognition Impaired: No Ability to Follow Directions: Good Speech Pattern: Clear Hallucinations: None Delusions: Not Present Thought Process: Linear Thought Content: positive for Circumstantial Judgement: Fair Data Data Completed and Pending Completed studies during hospitalization [Text1]: 01/10/23 01/10/23 01/10/23 13:42 14:04 14:51 WBC 8.5 RBC 4.58 Hgb 13.3 Hct 38.4 MCV 83.8 MCH 29.0 MCHC 34.6 RDW 14.7 Plt Count TNP MPV Not Reportable Immature Gran % (Auto) 0.6 H Neut % (Auto) 69.8 Lymph % (Auto) 22.6 [place] % (Auto) 5.2 Eos % (Auto) 1.1 Baso % (Auto) 0.7 Lymph # (Auto) 1.9 [place] # (Auto) 0.4 Eos # (Auto) 0.1 Baso # (Auto) 0.1 Abs Immat Gran (auto) 0.05 H Absolute Neuts (auto) 6.0 Absolute Nucleated RBC 0.000 Nucleated RBC % (auto) 0.0 Smear Tech's Comments VERIFIED Sodium 142 Potassium 3.8 Chloride 113 H Carbon Dioxide 21 L Anion Gap 12 BUN 19 H Creatinine 0.87 Estim Creat Clear Calc 47.0 Estimated GFR > 60 Random Glucose 131 H Calcium 9.2 Total Bilirubin 0.6 Direct Bilirubin 0.2 AST 20 ALT 20 Alkaline Phosphatase 75 Total Protein 6.7 Albumin 3.9 Urine Color Yellow Urine Appearance Clear Urine pH 5.5 Ur Specific [place] 1.020 Urine Protein Negative Urine Glucose (UA) Negative Urine Ketones Negative Urine Blood Negative Urine Nitrite Negative Ur Leukocyte Esterase Small (1+) H Urine RBC 3-5 H Urine WBC 6-10 H Ur Squamous Epith Cells 3-5 Urine Bacteria None Seen Hyaline Casts 0-2 Salicylates < 5.0 L Urine Opiates Screen Not Detected Urine Fentanyl Screen Not Detected Acetaminophen < 17 Ur Barbiturates Screen Not Detected Ur Phencyclidine Scrn Not Detected Ur Amphetamines Screen Not Detected U Benzodiazepines Scrn Not Detected Urine Cocaine Screen Not Detected U Marijuana (THC) Screen Not Detected Ethyl Alcohol < 10 COVID-19 (BUCKY) Negative COVID-19 Clin Com See Note 01/13/23 18:11 WBC RBC Hgb Hct MCV MCH MCHC RDW Plt Count MPV Immature Gran % (Auto) Neut % (Auto) Lymph % (Auto) [place] % (Auto) Eos % (Auto) Baso % (Auto) Lymph # (Auto) [place] # (Auto) Eos # (Auto) Baso # (Auto) Abs Immat Gran (auto) Absolute Neuts (auto) Absolute Nucleated RBC Nucleated RBC % (auto) Smear Tech's Comments Sodium Potassium Chloride Carbon Dioxide Anion Gap BUN Creatinine Estim Creat Clear Calc Estimated GFR Random Glucose Calcium Total Bilirubin Direct Bilirubin AST ALT Alkaline Phosphatase Total Protein Albumin Urine Color Yellow Urine Appearance Clear Urine pH 5.5 Ur Specific [place] 1.020 Urine Protein Negative Urine Glucose (UA) Negative Urine Ketones Negative Urine Blood Negative Urine Nitrite Negative Ur Leukocyte Esterase Moderate (2+) H Urine RBC 0-2 Urine WBC 6-10 H Ur Squamous Epith Cells 3-5 Urine Bacteria 2+ Hyaline Casts 0-2 Salicylates Urine Opiates Screen Urine Fentanyl Screen Acetaminophen Ur Barbiturates Screen Ur Phencyclidine Scrn Ur Amphetamines Screen U Benzodiazepines Scrn Urine Cocaine Screen U Marijuana (THC) Screen Ethyl Alcohol COVID-19 ([facility]) COVID-19 Clin Com 01/13/23 Unknown Urine clean catch - Urine miller top Urine Culture - Final 01/10/23 Unknown Urine clean catch - Urine miller top Urine Culture - Final DS: Summary Hospital Course Hospital Course: Patient is a 77-year-old female, single, with no children, with limited 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 The patient also has several medical problems that worsened her condition. Please see the HPI of the admission note for further details but apparently she had had several losses such as the date of several of his friends and family members from her network, cardia conditions that precludes her to do her activities of daily life. On admission, the patient was very anxious and distressed, stating that she did not like the unit since it was too loud and agitated. She adamantly denies suicidal ideation and she was able to contract for safety on admission. I contact her outpatient psychiatrist and he provide more collateral information regarding treatment options. We discussed at length risks, benefits, side-effects and alternatives and she agreed to tried Cymbalta to target depression and anxiety. She has not been on SN [place] antidepressants yet, she has tried in the past several SSRIs and Wellbutrin with limited efficacy. She was able to tolerate Cymbalta 20 mg p.o. daily with no side effects. No evidence of suicidality or psychotic symptoms. The patient's cognition was good, there was no evidence of early cognitive impairment, she was dysphoric but able to contract for safety. There were no safety concerns discharge planning was discussed. Also, we discussed at length end of life advance directives and she signed a MOLST. Time spent discussing smoking cessation with patient: 3 to 10 minutes Status at Discharge Cognitive/behavioral status at discharge: At baseline Functional status at discharge: independent ambulation Overall status at discharge: patient is back to baseline Time Spent with Patient Time attestation: Total time managing care of this patient today ____ minutes. Time spent: Less than 30 minutes Discharge Plan Discharge Anticipated Discharge Date/Time: 01/16/23 14:00 Patient Disposition: Home, Self-Care Discharge Diagnosis: Major depressive disorder recurrent episode severe without psychosis. PTSD Cluster B personality traits Referrals: [facility]-Dr Nolen [Other] - 03/30/23 2:45 pm (Your next gastroenterology appointment has been rescheduled for 03/30/23 at 2:45pm. The office has recommended that you call office prior to March and check cancellation lists for possible sooner appointment. ) Dr Alonso Chack[facility] [Other] - 01/23/23 10:40 am (Your next appointment with Dr Gupta for psychiatry is in office on 01/23/23 at 10:40am. ) Dr Yeimy Lion, PhD [Other] - 01/18/23 11:00 am (Your next appointment with Dr Lion is scheduled for 12/31/22 at 1100) [facility] [Other] - 3-5 Days Hitesh Anderson MD [Primary Care Provider] - 1 Week Discharge Medications: New Hydrocil Instant Packet 1 packet PO DAILY Qty: 30 0RF zolpidem 5 mg Tablet 5 mg PO BEDTIME PRN (Reason: Insomnia) 30 Days Qty: 30 0RF duloxetine 20 mg Capsule,Delayed Release(Dr/Ec) 20 mg PO BEDTIME 30 Days Qty: 30 0RF Continued losartan 50 mg tablet 50 mg PO BEDTIME 30 Days Qty: 30 0RF levothyroxine 88 mcg tablet 88 mcg PO DAILY 30 Days Qty: 30 0RF lorazepam 0.5 mg tablet 0.5 mg PO BID PRN (Reason: anxiety) 30 Days Qty: 60 0RF melatonin 10 mg Tablet 10 mg PO BEDTIME PRN (Reason: Insomnia) Qty: 30 0RF Discharge Orders: Discharge Order (Routine); Ordered 01/16/23 Ordered By: Terell Ye Diet: Advance to usual diet Activity on Discharge: As tolerated Stand Alone Forms: Patient Portal Discharge page Care Plan Goals: Care plan goals achieved in this admission Health Concerns: Continue care with her regular outpatient providers Plan of Treatment: Continue treatment with her outpatient psychiatrist Dr. Shore Assessment: Elderly female with a past history of able MDD, PTSD and cluster B traits admitted for suicidality in the context of several losses. Currently able to contract for [employer] safe to be discharged in the community with ancillary services. Highly functional baseline.
[2023-01-16] MEDS: Psyllium seed 3.7 GM PACKET PO ×2 (11:38)
--- NOTE | 2023-01-16 14:37 | PC.NURSE ---
Pt. A & O X 4. Reports readiness for discharge. Denies SI/HI/AH/VH. Reports anxiety and depression are manageable and she will follow up outpatient. Discharge medications and instructions reviewed with pt., who verbalized understanding. Pt. escorted from unit at 1400 escorted by this lyric writer.
== END 2023-01-16 14:00 | disposition home or self-care (01) | DRG 885 ==
LOC: HO.ED 16:46 → HO.PGERI 18:17
PROVIDERS: Physician Assistant; Admitting Provider Psychiatry & Neurology Psychiatry; Emergency Provider Student in an Organized Health Care Education/Training Program; PCP Internal Medicine; Visit Provider Psychiatry & Neurology Psychiatry
DX: F33.2 Major depressive disorder, recurrent severe without psychotic features (principal); R45.851 Suicidal ideations; F60.9 Personality disorder, unspecified; I48.0 Paroxysmal atrial fibrillation; E03.9 Hypothyroidism, unspecified; Z23 Encounter for immunization; Z20.822 Contact with and (suspected) exposure to COVID-19; Z79.890 Hormone replacement therapy; Z79.899 Other long term (current) drug therapy
CPT/HCPCS: 36415; 80048; 80076; 80143; 80179; 80307; 81001; 85025; 87086; 87635; 90686; 93005; 99285

== ENCOUNTER → 2023-01-10 18:12 | Outpatient (BNV) | payer MEDICARE, SELFPAY | PROVIDERS: Admitting Provider Psychiatry & Neurology Psychiatry; Emergency Provider Student in an Organized Health Care Education/Training Program; PCP Internal Medicine; Visit Provider Physician Assistant | DX: I48.0 Paroxysmal atrial fibrillation (principal) | CPT/HCPCS: 99222 ==

== ENCOUNTER → 2023-01-10 18:12 | Outpatient (BNV) | payer MEDICARE, SELFPAY | PROVIDERS: Admitting Provider Psychiatry & Neurology Psychiatry; Emergency Provider Student in an Organized Health Care Education/Training Program; PCP Internal Medicine; Visit Provider Psychiatry & Neurology Psychiatry | DX: F32.9 Major depressive disorder, single episode, unspecified (principal); F43.10 Post-traumatic stress disorder, unspecified; F60.9 Personality disorder, unspecified | CPT/HCPCS: 99222; 99231; 99232; 99238 ==

== ENCOUNTER 2023-02-22 15:19 | Outpatient (AMB) | payer MEDICARE, SELFPAY ==
--- NOTE | 2023-02-22 15:27 | A.OFFPC_ITS ---
Vital Signs 02/22/23 15:29 02/22/23 15:39 Height 5 ft 1.5 in Weight 154 lb 6 oz BMI 28.7 BP 146/100 H 130/80 Blood Pressure Location Lt brachial Lt brachial Position Sitting Sitting Pulse 78 Pulse Source Pulse Oximeter Pulse Oximetry (%) 97 Oxygen Delivery Method Room Air Intake Visit Reasons: 3 month f/u ( after heart surgery ) Intake Note: Patient is here to follow up on 3months post heart surgery, Afib, HTN Photographic Editor Required: No Barrel Filler: Not Required per policy Accompanied by: Self / Same As Patient Allergies No Known Allergies Allergy (Verified 02/23/23 05:31) Medication List - Last Reconciled 02/23/23 by Hitesh Anderson MD apixaban (Eliquis) 5 mg PO BID ascorbic acid (vitamin C) 500 mg PO DAILY cholecalciferol (vitamin D3) 50 mcg PO DAILY duloxetine 20 mg PO BEDTIME 30 days levothyroxine 88 mcg PO DAILY 30 days lorazepam 0.5 mg PO BID PRN 30 days losartan 75 mg PO BEDTIME melatonin 10 mg PO BEDTIME PRN psyllium (Hydrocil Instant oral packet) 1 packet PO DAILY Tobacco use date assessed: 02/22/23 Fall risk assessment: No Falls in past year Last assessed Fall Risk: 02/22/23 HPI 3 month f/u ( after heart surgery ) HPI Details 77-year-old female presents to the offic e to discuss her chronic medical conditions. Since the last office visit, patient underwent cardiac septal ablation procedure. Subsequently she has developed paroxysmal atrial fibrillation and now on newer oral anticoagulants. In addition patient has had worsening of her depression symptoms and has been admitted to [facility]. Patient would like to see a lens cutter to help her with a proper diet. Patient feels overwhelmed at times due to multiple medical issues going on. She now has a healthcare advocate. [facility] Medical History Anxiety and depression Hypothyroidism Osteoporosis Paroxysmal atrial fibrillation Hypertension Surgical History History of heart surgery History of bilateral breast reduction surgery History of cosmetic plastic surgery Family History Other Mental health disorder Social History Household Members: None Housing: Apartment Housing Other:: patient states she is renting 2 rooms in a commune Do you presently have visiting nurse or other home services: No Alcohol intake: current Alcohol intake frequency: holidays/special occasions only Patient Tobacco Use Status: Former Tobacco user Tobacco use type: Cigarette e-Cigarette/Vaping Use: Never Used Second Hand Smoke Exposure: Yes service: No Current occupational status: employed 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 Wild Payan, Anette Ramirez, Isaiah Harry and colleagues, with an educational yelena from [employer]. Physical exam (Primary Care) Vital Signs: Last Vital Signs Pulse 78 02/22/23 15:29 BP 130/80 02/22/23 15:39 Pulse Ox 97 02/22/23 15:29 Oxygen Delivery Method Room Air 02/22/23 15:29 BMI result Body Mass Index 28.7 Tobacco/Smoking Status: Tobacco use Status Tobacco use date assessed 02/22/23 02/22/23 15:28 Patient Tobacco Use Status Former Tobacco user 02/22/23 15:28 Tobacco use type Cigarette 02/22/23 15:28 e-Cigarette/Vaping Use Never Used 02/22/23 15:28 Thrive Assessment: Date of Thrive Assessment Date Thrive assessed 12/27/22 02/22/23 15:28 Const General: cooperative and healthy appearing Nutritional Appearance: well nourished Orientation/consciousness: patient oriented x3 Limitations: no limitations HENMT Head: Yes normal to inspection Eyes General: appearance normal, both eyes and all related structures Neck Neck: Yes normal visual inspection Chest Chest palpation & inspection: normal palpation of entire chest wall Resp Effort & Inspection: normal respiratory effort Neuro General: patient oriented x3 Results Reviewed Results Reviewed: Previous hospital admission for mental health reviewed. Assessment and Plan Assessment & Plan (1) HOCM (hypertrophic obstructive cardiomyopathy): Comment: alcohol septal ablation by Dr. Castle at [facility] 11/10/2022 Code(s): I42.1 - Obstructive hypertrophic cardiomyopathy Plan: This condition is being followed up by a balance bridge assembler in [place]. I am awaiting the results or notes from the recent visit. Patient had blood work done there. A message has been sent asking them to forward the results. I am interested in looking at her lipid profile. (2) Major depressive disorder: Code(s): F32.9 - Major depressive disorder, single episode, unspecified Plan: Patient continues to be depressed. She is not a candidate for TMS as she is on an oral anticoagulant. (3) Paroxysmal atrial fibrillation: Code(s): I48.0 - Paroxysmal atrial fibrillation Plan: Patient is unhappy that she is taking an oral anticoagulant. I explained to her the risks of not taking the medication. She is worried about her nutrition and would like to see a lens cutter. I have promised to look in to it. According to the patient she underwent a sleep study and is awaiting the results. The current study was done at [facility]. I have called the balance bridge assembler's office taking care of her for the results. Coding Level of Care Code Est Pt Level 4 (22852) Diagnoses HOCM (hypertrophic obstructive cardiomyopathy) I42.1 Major depressive disorder F32.9 Paroxysmal atrial fibrillation I48.0
[2023-02-22 15:29] VITALS: BP 146/100; PULSE 78; O2SAT 97; BMI 28.7
[2023-02-22 15:39] VITALS: BP 130/80
== END 2023-02-22 16:04 | disposition home or self-care (01) ==
PROVIDERS: PCP Internal Medicine; Visit Provider Internal Medicine
DX: I42.1 Obstructive hypertrophic cardiomyopathy (principal); F33.9 Major depressive disorder, recurrent, unspecified; I48.0 Paroxysmal atrial fibrillation
CPT/HCPCS: 99214

== ENCOUNTER 2025-04-14 14:43 | Emergency (ER) | payer MEDICARE, SELFPAY ==
[2025-04-14 15:25] VITALS: BMI 31.2
[2025-04-14 15:50] VITALS: BP 161/67; PULSE 79; RESP 16; TEMP 36.6; O2SAT 100
[2025-04-14 15:54] LABS: MANUAL DIFF FLAG NO
[2025-04-14 16:01] LABS: Hematocrit 41.4 % (37.0-47.0); Hemoglobin 14.2 g/dl (12.0-16.0); Imm Gran Abs Auto 0.06 X10*3/uL (0.00-0.03); Imm Gran Pct Auto 0.7 % (0.0-0.4); Lymphocytes Absolute Auto 2.1 X10*3/uL (1.2-4.9); Mean Corpuscular HGB Conc 34.3 g/dl (31.0-35.0); Mean Corpuscular Hemoglobin 29.3 pg (27.0-33.0); Mean Corpuscular Volume 85.4 fL (80.0-98.0); NRBC Abs Auto 0.000 X10*3/uL (0.0-0.012); NRBC Pct Auto 0.0 /100WBC (0.0-0.2); Platelet Count 201 X10*3/uL (160-400); Red Blood Count 4.85 X10*6/uL (4.20-5.50); White Blood Count 9.2 X10*3/uL (4.8-10.8)
[2025-04-14 16:08] LABS: Appearance Urine Cloudy; Glucose Urine UA Negative (Negative); PH 6.0 (5.0-9.0); Specific Gravity - Urine 1.015 (1.005-1.025); UMIC TRIGGER UACC YES
[2025-04-14 16:09] LABS: Cannabinoid Screen Urine Not Detected (Not Detect)
[2025-04-14 16:23] LABS: UACC Culture Trigger YES
[2025-04-14 16:31] LABS: Alanine Aminotransferase 46 U/L (0-31); Albumin Level 4.3 g/dL (3.5-5.0); Alkaline Phosphatase 94 U/L (39-117); Aspartate Amino Transferase 39 U/L (5-31); Blood Urea Nitrogen 21 mg/dL (9-16); Calcium 9.7 mg/dL (8.4-10.2); Carbon Dioxide 22 mmol/L (22-29); Chloride 111 mmol/L (96-108); Creatinine Clr Calc Pharmacy 38.1; Estimated Glomerular Filt Rate 49; Potassium 4.4 mmol/L (3.3-5.1); Sodium 142 mmol/L (135-145); Total Protein 7.0 g/dL (6.5-8.0)
--- NOTE | 2025-04-14 16:56 | MHC.EDTECH ---
Patient arrived to Ed with food from restaurant. Pt requesting to keep, Placed labels on food and it is in the fridge. Travel cup with water empties and cup placed in pink bag.
[2025-04-14 17:13] LABS: Anion Gap 14 (12-20)
--- NOTE | 2025-04-14 18:09 | PC.NURSE ---
Pt is anxious about her belongings, she states she needs her neck pillow, her creams, her eye drops and other things. Pt gets upset when she is told of the restrictions. provider is aware of her request for a neck pillow.
--- NOTE | 2025-04-14 19:23 | ED.PSYCH ---
HPI - Psych General Chief Complaint: Psychiatric Symptoms Stated Complaint: requesting eval depression Time Seen by Provider: 04/14/25 16:13 Source: patient, RN notes reviewed and old records reviewed Mode of arrival: ambulatory Limitations: no limitations History of Present Illness ED Provider: ELICIA Jessica HPI Narrative: 79-year-old female with medical history of HOCM, personality disorder, PTSD, MDD, paroxysmal AFib on Eliquis, presents to the ED due to increased depression and hopelessness. Patient starts her depression has increased significantly over the last six-months when she moved from an independent living facility to an assisted living facility. Patient feels like she has been isolated, and does not feel like she needs the level of care that she is in. Patient states that the residents around her are all severely disabled, or demented and she is unable to socialize the way she expected. Patient states she has been experiencing a general state of malaise and has to force herself to get up and go in the mornings as she just wants to lay around in bed all day. Patient states she has been feeling very hopeless and has stopped doing activities that bring her brittany such as singing, and making art. Patient states she would like a bed on S1 as she feels like this is helped her in the past. Patient denies suicidal ideation, self-harm, HI, AH, VH or physical complaints such as chest pain, shortness of breath, headaches, visual changes, abdominal pain, nausea, vomiting, diarrhea, urinary symptoms Related Data Home Medications ?Medication ?Instructions ?Recorded ?Confirmed ascorbic acid (vitamin C) 250 mg 500 mg PO DAILY 11/03/22 04/14/25 chewable tablet cholecalciferol (vitamin D3) 50 50 mcg PO DAILY 11/03/22 04/14/25 mcg (2,000 unit) chewable tablet apixaban 5 mg tablet (Eliquis) 5 mg PO BID 02/22/23 04/14/25 losartan 50 mg tablet 75 mg PO BEDTIME 02/22/23 04/14/25 diltiazem HCl 60 mg 60 mg PO BID 04/14/25 04/14/25 capsule,extended release 12 hr gabapentin 300 mg capsule 300 mg PO BEDTIME PRN Insomnia 04/14/25 04/14/25 lorazepam 1 mg tablet 1 mg PO BEDTIME 04/14/25 04/14/25 trazodone 50 mg tablet 50 mg PO BEDTIME PRN Insomnia 04/14/25 04/14/25 Previous Rx's ?Medication ?Instructions ?Recorded levothyroxine 88 mcg tablet 88 mcg PO DAILY 30 days #30 tabs 01/16/23 melatonin 10 mg tablet 10 mg PO BEDTIME PRN Insomnia #30 01/16/23 tabs psyllium (Hydrocil Instant oral 1 packet PO DAILY #30 ea 01/16/23 packet) Allergies Allergy/AdvReac Type Severity Reaction Status Date / Time No Known Allergies Allergy Verified 04/14/25 15:31 Review of Systems Review of Systems: Yes all other systems are reviewed and are negative PMFSH Past Medical History Attestation statement: The following information was validated with the patient. Source: old records reviewed and nursing notes reviewed Medical History Anxiety and depression Hypothyroidism Osteoporosis Paroxysmal atrial fibrillation Hypertension Surgical History History of heart surgery History of bilateral breast reduction surgery History of cosmetic plastic surgery Family History Family History Other Mental health disorder Social History Social History Household Members: None Housing: Apartment Housing Other:: patient states she is renting 2 rooms in a commune Do you presently have visiting nurse or other home services: No Alcohol intake: current Alcohol intake frequency: holidays/special occasions only Patient Tobacco Use Status: Former Tobacco user Tobacco use type: Cigarette e-Cigarette/Vaping Use: Never Used Second Hand Smoke Exposure: Yes Advance Directives: No Advance Directives Information Provided: Yes Do you have a plan to hurt others: No Plan service: No Current occupational status: employed 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 HEENT: ?NC, AT. MMM. EOMI, clear conjunctiva, oropharynx clear. NECK: ?Supple without lymphadenopathy.? No stiffness or restricted ROM. HEART:? Normal rate and regular rhythm, normal S1/S2, no m/r/g LUNGS:? CTAB, moving air well. No crackles or wheezes are heard. ABDOMEN: ?Soft, nontender, nondistended BACK: No CVAT, no obvious deformity. EXTREMITIES: ?Without cyanosis, clubbing or edema. NEUROLOGICAL: ?Grossly nonfocal. Alert and oriented, moving all 4 extremities. Observed to ambulate with normal gait. Skin: ?Warm and dry without any rash. Psych: Patient is tearful and hyperverbal, patient has appropriate eye contact, denies SI, HI, AVH Course Reevaluation(s) Reevaluation #1: Time: 05:01 Date: 04/15/25 Provider: Justyn Mckinney MD Patient in physician observation for psychiatric evaluation.? No acute events reported overnight. No current complaints. VS stable. Patient was evaluated by the CARE team and meets inpatient level of care. Patient is a bed search. Will continue to monitor. Time: 13:54 Date: 04/15/25 Provider: Justyn Mckinney MD Physician observation ended at 13:54. Patient has been cleared for discharge by the CARE team. Medications Administered Discontinued Medications Generic Name Dose Route Start Last Admin Trade Name Freq PRN Reason Stop Dose Admin Apixaban 5 mg 04/14/25 21:00 04/14/25 23:39 Apixaban 5 Mg Tablet PO Not Given BID DIANNE Apixaban 5 mg 04/14/25 23:00 04/15/25 10:06 Apixaban 5 Mg Tablet PO 5 mg BID@0900,2300 DIANNE Administration Ascorbic Acid 500 mg 04/15/25 09:00 04/15/25 10:06 Ascorbic Acid 500 Mg Tablet PO 500 mg DAILY DIANNE Administration Diltiazem HCl 60 mg 04/14/25 23:00 04/15/25 10:06 Diltiazem Hcl Sr 60 Mg Cap.Er.12h PO 60 mg BID@0900,2300 DIANNE Administration Protocol Gabapentin 300 mg 04/14/25 20:22 04/14/25 23:17 Gabapentin 300 Mg Capsule PO 300 mg BEDTIME PRN Administration Insomnia Levothyroxine Sodium 88 mcg 04/15/25 09:00 04/15/25 10:06 Levothyroxine Sodium 88 Mcg Tablet PO 88 mcg DAILY@0630 DIANNE Administration Lorazepam 1 mg 04/14/25 21:00 04/14/25 23:39 Lorazepam 1 Mg Tablet PO Not Given BEDTIME DIANNE Lorazepam 1 mg 04/14/25 23:00 04/14/25 23:17 Lorazepam 1 Mg Tablet PO 1 mg DAILY@2300 DIANNE Administration Losartan Potassium 75 mg 04/14/25 21:00 04/14/25 23:40 Losartan Potassium 25 Mg Tablet PO Not Given BEDTIME DIANNE Protocol Losartan Potassium 75 mg 04/14/25 23:00 04/14/25 23:34 Losartan Potassium 25 Mg Tablet PO Not Given DAILY@2300 DIANNE Protocol Losartan Potassium 75 mg 04/15/25 10:45 04/15/25 10:51 Losartan Potassium 25 Mg Tablet PO 75 mg DAILY DIANNE Administration Protocol Psyllium Hydrophilic Mucilloid 3.7 gm 04/15/25 09:00 04/15/25 10:07 Psyllium Seed 3.7 Gm Packet PO Not Given DAILY DIANNE Trazodone HCl 50 mg 04/14/25 20:22 04/14/25 23:16 Trazodone Hcl 50 Mg Tablet PO 50 mg BEDTIME PRN Administration Insomnia Vitamin D 50 mcg 04/15/25 09:00 04/15/25 10:06 Cholecalciferol (Vitamin D3) 25 Mcg Tablet PO 50 mcg DAILY DIANNE Administration Medical Decision Making Medical Decision Making MDM Narrative: 79-year-old female with medical history of HOCM, personality disorder, PTSD, MDD, paroxysmal AFib on Eliquis, presents to the ED due to increased depression and hopelessness that is centered around her living situation. Patient states she moved from an independent living facility to assisted living facility [facility] in September. Patient states she has had increased depression and hopelessness since then as she feels like she does not meet the level of care that the other residents need and feels isolated. Patient states the other residents are severely demented, with severe physical disabilities due to their older age and can not socialize bringing her emotional distress. Denies physical complaints, denies SI, HI, AVH VS on initial observation-BP 161/67, pulse rate of 79, respiratory rate of 16, afebrile with oral temp of 97.8?, O2 saturation 100% on room air. On physical exam patient is tearful, and hyperverbal, patient is extremely unhappy with her living situation and feels isolated. Labs without leukocytosis/leukopenia, H&H stable, no electrolyte abnormalities, mild transaminitis with an AST of 39, ALT of 46. UA reveals 1+ leukocyte esterase, negative nitrites, no urine bacteria, patient without urinary symptoms, no indication for antibiotics at this time. U tox negative Patient is perseverating getting her night meds at exactly 11pm. i ordered one time doses of her night meds to be given at that time. Patient was evaluated by behavioral health specialists David Irwin and discussed together the best plan of treatment. Patient would benefit from geriatric IPLOC for mood stabilization, safety and medication evaluation due to increased depression and passive thoughts of and is voluntary to [facility]. Patient denies SI, HI, AVH. Patient is currently awaiting bed for IPLOC. Patient entering [facility] obs at 20:44 as she awaits bed for IPLOC Differential Diagnosis Differential Diagnoses: The differential diagnosis associated with the presentation includes Increased depression Increased anxiety PTSD Psychosis Suicidal ideation Admission/Observation Consideration of admission/observation: Escalation of care including admission/observation considered Patient is currently voluntary to IP LOC and is current adult bedsearch Consult Healthcare Provider Management of the patient was discussed with: Boat Carpenter Mechanic (Care team) Lab Data [facility] Lab Attestation statement: I reviewed the patient's lab results. 04/14/25 15:49 04/14/25 15:49 Labs: Lab Results 04/14/25 Range/Units 15:49 WBC 9.2 (4.8-10.8) X10*3/uL RBC 4.85 (4.20-5.50) X10*6/uL Hgb 14.2 (12.0-16.0) g/dl Hct 41.4 (37.0-47.0) % MCV 85.4 (80.0-98.0) fL MCH 29.3 (27.0-33.0) pg MCHC 34.3 (31.0-35.0) g/dl RDW 14.6 (11.0-16.0) % Plt Count 201 (160-400) X10*3/uL MPV 11.0 (9.4-12.3) fL Immature Gran % (Auto) 0.7 H (0.0-0.4) % Neut % (Auto) 71.3 (45-73) % Lymph % (Auto) 22.3 (20-40) % Love % (Auto) 4.3 (2-11) % Eos % (Auto) 0.7 (0-4) % Baso % (Auto) 0.7 (0-2) % Lymph # (Auto) 2.1 (1.2-4.9) X10*3/uL Love # (Auto) 0.4 (0.1-1.2) X10*3/uL Eos # (Auto) 0.1 (0.0-0.4) X10*3/uL Baso # (Auto) 0.1 (0.0-0.2) X10*3/uL Abs Immat Gran (auto) 0.06 H (0.00-0.03) X10*3/uL Absolute Neuts (auto) 6.6 (2.0-8.3) x10*3/uL Absolute Nucleated RBC 0.000 (0.0-0.012) X10*3/uL Nucleated RBC % (auto) 0.0 (0.0-0.2) /100WBC Sodium 142 (135-145) mmol/L Potassium 4.4 (3.3-5.1) mmol/L Chloride 111 H (96-108) mmol/L Carbon Dioxide 22 (22-29) mmol/L Anion Gap 14 (12-20) BUN 21 H (9-16) mg/dL Creatinine 1.07 (0.5-1.4) mg/dL Estim Creat Clear Calc 38.1 Estimated GFR 49 Random Glucose 118 H (60-115) mg/dL Calcium 9.7 (8.4-10.2) mg/dL Total Bilirubin 0.8 (0.0-1.0) mg/dL AST 39 H (5-31) U/L ALT 46 H (0-31) U/L Alkaline Phosphatase 94 (39-117) U/L Total Protein 7.0 (6.5-8.0) g/dL Albumin 4.3 (3.5-5.0) g/dL Urine Color Yellow Urine Appearance Cloudy Urine pH 6.0 (5.0-9.0) Ur Specific [place] 1.015 (1.005-1.025) Urine Protein Negative (Neg-Trace) mg/dL Urine Glucose (UA) Negative (Negative) mg/dL Urine Ketones Negative (Negative) mg/dL Urine Blood Negative (Negative) Urine Nitrite Negative (Negative) Ur Leukocyte Esterase Small (1+) H (Negative) Urine RBC 0-2 (0-2) /HPF Urine WBC 0-5 (0-5) /HPF Ur Squamous Epith Cells 0-2 (0-2) /HPF Urine Bacteria None Seen (None Seen) Hyaline Casts 0-2 (0-2) /LPF Urine Opiates Screen Not Detected (Not Detect) Ur Buprenorphine Scrn Not Detected (Not Detect) ng/mL Ur Oxycodone Screen Not Detected (Not Detect) ng/mL Urine Methadone Screen Not Detected (Not Detect) ng/mL Urine Fentanyl Screen Not Detected (Not Detect) Ur Barbiturates Screen Not Detected (Not Detect) Ur Phencyclidine Scrn Not Detected (Not Detect) Ur Amphetamines Screen Not Detected (Not Detect) U Benzodiazepines Scrn Not Detected (Not Detect) Urine Cocaine Screen Not Detected (Not Detect) U Marijuana (THC) Screen Not Detected (Not Detect) Ethyl Alcohol < 10 mg/dL External Record Review External record reviewed: Inpatient record, Office record, Outpatient record and Prior outpatient labs Chronic Conditions Patient?s care impacted by: Hypertension and Other (HOCM, personality disorder, PTSD, MDD, paroxysmal AFib on Eliquis) Social Determinants Patient?s care significantly limited by Social Determinants of Health including: Other Social Determinant of Health Discharge Plan Discharge Clinical Impression: Major depressive disorder Patient Disposition: Home, Self-Care Additional Instructions: You were seen in our Emergency Department today for treatment of a behavioral health issue. It is important after your visit that you follow up with either your behavioral health provider or a primary care doctor within 7 days.? If you have trouble finding a therapist you can reach out to [address] [phone] [facility] [employer] [facility] can be reached 7 days a week 24 hours a day.? Call [phone] to speak with someone.? Return for any worsening symptoms or concerns such as thoughts of self harm or harm to others. Please call 911 if you feel your mental health is worsening.? Prescriptions: No Action Hydrocil Instant Packet 1 packet PO DAILY Qty: 30 0RF levothyroxine 88 mcg tablet 88 mcg PO DAILY 30 Days Qty: 30 0RF melatonin 10 mg Tablet 10 mg PO BEDTIME PRN (Reason: Insomnia) Qty: 30 0RF trazodone 50 mg tablet 50 mg PO BEDTIME PRN (Reason: Insomnia) gabapentin 300 mg capsule 300 mg PO BEDTIME PRN (Reason: Insomnia) diltiazem HCl 60 mg capsule,extended release 12 hr 60 mg PO BID lorazepam 1 mg tablet 1 mg PO BEDTIME cholecalciferol (vitamin D3) 50 mcg (2,000 unit) tablet,chewable 50 mcg PO DAILY ascorbic acid (vitamin C) 250 mg tablet,chewable 500 mg PO DAILY losartan 50 mg tablet 75 mg PO BEDTIME Eliquis 5 mg tablet 5 mg PO BID Interventions: [place]-Suicide Risk Severity Scale Last Done: 04/14/25 15:45 Discharge Date/Time: 04/15/25 13:54 Print Language: Irish
--- OUTSIDE RECORDS SUMMARY | 2025-04-14 22:47 | XMS_ITS | Clinical Summary ---
Author Organization [facility] Address [address] [place] [address] Care Team Providers Care Utility Accounts Director Name Role Phone Srikanth De León MD Primary Care Provider Allergies No known active allergies Medications dextroamphetami ne-amphetamine (ADDERALL) 20 mg tablet Take by mouth. Activ e alendronate (FOSAMAX) 70 mg tablet TAKE 1 TABLET A WEEK 0 Active buPROPion XL (WELLBUTRIN XL) 300 mg tablet 9 Active calcium carbonate (OS-MITUL) 500 mg calcium (1,250 mg) tablet Take by mouth. 2 Active clonazePAM (KlonoPIN) 0.5 mg tablet Take 0.5 mg by mouth nightly. at bedtime 0 Active escitalopram (LEXAPRO) 5 mg tablet Take 5 mg by mouth daily. 0 Active levothyroxine (SYNTHROID, LEVOTHROID) 75 mcg tablet Take 75 mcg by mouth daily. 0 Active ciclopirox (LOPROX) 0.77 % creamIndication s:Seborrheic dermatitis Gently massage face areas affected twice daily 30 g 5 0 Active ciclopirox 1 % shampooIndicati ons:Seborrheic dermatitis gently massage into affected areas and surrounding skin on the face. Leave in for five mins then rinse. Then use 2-3 times weekly. Then can use once weekly to maintain results if improved. 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 Good hydration, rest, Daily zinc for duration of cold When patient stops seeing blood in nasal secretions can try Flonase if still having rhinorrhea. Patient advised if developing worsening symptoms, SOB, or fevers to call clinic or make a follow up appointment, also advised if no improvement with symptoms in next two weeks to make follow up, if develops any pain patient advised to use tylenol Ear pain, right 02/08/2019 Overview (04/22/2019): Last Assessment & Plan: Currently ear pain is resolved, on exam looked like possibly could have been bullous myringitis of right ear, if symptoms return patient to use ciprodex to calm the inflammation of tympanic membrane which would likely improve pain. Patient to call if symptoms return. Legionnaires' disease 02/08/2019 Rhinorrhea 02/08/2019 Acute pain of left knee 02/01/2019 Fall (on) (from) other stairs and steps, initial encounter 02/01/2019 Overview (04/22/2019): Last Assessment & Plan: 73 y/o/f PMHx osteoporosis, hypothyroidism presents days after a mechanical fall that has resulted in elbow and knee pain. Elbow likely muscle strain or contusion of distal biceps, cryotherapy BID for 20 minutes each time, NSAIDs for next few days ( patient denies history of GI bleed), xray today Knee pain: on exam patient has mild pain on medial and lateral joint line this may be related to OA, Xray and standing xray today, NSAID's for next few days, cryotherapy Patient to call if no improvement or having worsening of symptoms Patient has not been seen in our clinic in some time she is encouraged to follow up in the next few weeks. Left elbow pain 02/01/2019 Depressive disorder 10/10/2011 Disorder of bone and articular cartilage 012 Obstructive sleep apnea syndrome 10/10/2011 Hypothyroidism 01/12/2009 Social History Tobacco Use Types Packs/Day Years Used Date Smoking Tobacco: Former Smokeless Tobacco: Never Comments Unknown Sex and Gender Information Value Date Recorded Sex Assigned at Not on file Legal Sex Female 3:51 AM EDT Gender Identity Not on file Sexual Orientation Not on file Last Filed Vital Signs Vital Sign Reading Time Taken Comments Blood Pressure - - Pulse - - Temperature - - Respiratory Rate - - Oxygen Saturation - - Inhaled Oxygen Concentration - - Weight 66.7 kg (147 lb) 11/21/2019 11:36 AM EDT Height 156.5 cm (5' 1.6 ) 11/21/2019 11:36 AM ED T Body Mass Index 27.24 11/21/2019 11:36 AM EDT Plan of Treatment Health Maintenance Due Date Last Done Comments DTaP,Tdap,and Td Vaccines (1 - Tdap) 11/10/1965 Osteoporosis Screening 11/10/1993 Pneumococcal Vaccine: 50+ Years (1 of 1 - PCV) 11/10/1993 Zoster Vaccines (2 of 3) 09/10/2010 07/16/2010 RSV Vaccine (60+ years old and patients) (1 - 1-dose 75+ series) 11/10/2018 Alcohol/Substance Use Screening 05/01/2024 Health Care Proxy Review 05/01/2024 Influenza Vaccine (#1) 2024 , 01/03/2020 COVID-19 Vaccine (4 - 2024-2 6 season) 2024 02/16/2021, 06/27/2020, 06/03/2020 Hepatitis B Vaccines Aged Out No long er eligible based on patient's age to complete this topic Insurance MEDICARE [facility] Care Teams Utility Accounts Director Relationship Specialty Start Date End Date Srikanth De León MD [facility] [address] [place] [address] PCP - General 11/25/21
--- OUTSIDE RECORDS SUMMARY | 2025-04-14 22:47 | XMS_ITS | Clinical Summary ---
Author Organization [facility] Address [address] [place] [address] Care Team Providers Care Computer Applications Engineer Name Role Phone Pcp, No MD Primary Care Provider Unavailabl e Allergies No known active allergies Medications buPROPion XL (WELLBUTRIN XL) 300 mg 24 hr tablet 01/14/2019 Active alendronate (FOSAMAX) 70 mg tablet Take 70 mg by mouth once a week. 11 11/14/2018 Active calcium carbonate (OSCAL) 500 mg calcium (1,250 mg) tablet Take by mouth. 10/10/2011 Active levothyroxine sodium (TIROSINT) 75 mcg capsule Take 75 mcg by mouth daily. 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 Patient to call if symptoms return. Rhinorrhea 02/08/2019 Left elbow pain 02/01/2019 Acute pain of left knee 02/01/2019 Fall (on) (from) other stairs and steps, initial encounter 02/01/2019 Assessment & Plan (02/01/2019 2:46 PM EDT): 73 y/o/f PMHx osteoporosis, hypothyroidism presents days [...] follow up in the next few weeks. Depressive disorder 10/10/2011 Disorder of bone and articular cartilage 012 Hypothyroidism 10/10/2011 Obstructive sleep apnea syndrome 10/10/2011 Resolved Problems Problem Noted Date Diagnosed Date Resolved Date Common cold 02/08/2019 08/20/2024 Assessment & Plan (02/08/2019 2:40 PM EDT): Mild dry cough, rhinorrhea, minimal blood when [...] any pain patient advised to use tylenol Immunizations Immunization Administration Dates Next Due Zoster 07/16/2010 Social History Tobacco Use Types Packs/Day Years Used Date Smoking Tobacco: Never Smokeless Tobacco: Never Comments Unknown Sex and Gender Information Value Date Recorded Sex Assigned at Female 12/29/2020 9:37 AM EDT Legal Sex Female 10:53 AM EST Gender Identity Female 12/29/2020 9:37 AM EDT Sexual Orientation Straight 12/29/2020 9: 37 AM EDT Last Filed Vital Signs Vital Sign Reading Time Taken Comments Blood Pressure 174/90 12/30/2020 3:18 PM EDT Pulse 69 12/30/2020 3:18 PM EDT Temperature 36.4 C (97.5 F) 02/08/2019 10:41 AM EDT Respiratory Rate 15 02/08/2019 10:41 AM EDT Oxygen Saturation 97% 02/08/2019 10:41 AM EDT Inhaled Oxygen Concentration - - Weight 62.6 kg (138 lb) 12/30/2020 3:18 PM EDT Height 156.2 cm (5' 1.5 ) 12/30/2020 3:18 PM EDT Body Mass Index 25.65 12/30/2020 3:18 PM EDT Plan of Treatment Health Maintenance Due Date Last Done Comments HIV Screening 1945 DTaP,Tdap,and Td Vaccines (1 - Tdap) 11/10/1961 Pneumococcal Vaccine, 50+ Years (1 of 1 - PCV) 11/10/1993 Zoster Vaccines (1 of 2) 09/10/2010 COVID-19 Vaccine (4 - 2024-2 6 season) 2024 02/16/2021, 06/27/2020, 06/03/2020 Influenza Vaccine (#1) 2024 Bone Density Screening Completed 08/26/2020 HPV Vaccines Aged Out No longer eligi ble based on patient's age to complete this topic Hepatitis A Vaccines Aged Out No long er eligible based on patient's age to complete this topic Meningococcal Vaccine Aged Out No tahira judah eligible based on patient's age to complete this topic Insurance MEDICARE PART A & B [facility] [employer] [place] [id number] Care Teams Computer Applications Engineer Relationship Specialty Start Date End Date Prema Solorzano MD [address] [place] [address] PCP - General Internal Medicine 02/01/19
--- OUTSIDE RECORDS SUMMARY | 2025-04-14 22:47 | XMS_ITS | Encounter Summary ---
Author Organization [facility] Address [address] [place] [address] Care Team Providers Care Security Vehicle Patrol Officer Name Role Phone Srikanth De León MD Primary Care Provider [phone] Reason for Visit * Reason Onset Date Comments Rash 10/04/2021 Pt is calling to schedule for a rash, new growths, moles, and a complete skin exam. Pt prefers Dr. Chacon. Please call pt at [phone]. Encounter Details Date Type Department Care Team ([facility] Contact Info) Description 10/04/2021 Telephone [facility] Central Scheduling Department [address] [place] [address] Telephone Intake, Staff Rash (Pt is calling to schedule for a rash, new growths, moles, and a complete skin exam. Pt prefers Dr. Chacon. Please call pt at [phone].) Social History Tobacco Use Types Packs/Day Years Used Date Smoking Tobacco: Former Smokeless Tobacco: Never Comments Unknown Sex and Gender Information Value Date Recorded Sex Assigned at Not on file Legal Sex Female 3:51 AM EDT Gender Identity Not on file Sexual Orientation Not on file documented as of this encounter Miscellaneous Notes * Telephone Encounter - Lea Ford - 10/04/2021 1:42 PM EDT Documentation purpose. lvm at [id number]. Pt is calling to schedule for a rash, new growths, moles, and a complete skin exam. Pt prefers Dr. Chacon. Please call pt at [phone]. documented in this encounter Plan of Treatment Not on file documented as of this encounter Visit Diagnoses Not on filedocumented in this encounter Care Teams Security Vehicle Patrol Officer Relationship Specialty Start Date End Date Srikanth De León MD [address] [address] PCP - General 11/25/21 documented as of this encounter
--- OUTSIDE RECORDS SUMMARY | 2025-04-14 22:47 | XMS_ITS | Clinical Summary ---
Author Organization [facility] Address [address] [place] [address] Care Team Providers Care Hand Binder Cutter Name Role Phone Nimisha Pastor Primary Care Provider [phone] Allergies No known active allergies Medications levothyroxine (SYNTHROID, LEVOTHROID) 75 MCG tablet 2020 Active clonazePAM (KlonoPIN) 0.5 MG tablet 11/05/2020 Active amphetamine-dex troamphetamine (ADDERALL) 20 MG tablet Take by mouth. Active oxyCODONE (ROXICODONE) 5 MG immediate release tabletIndicatio ns:Brow ptosis Take 1 tablet (5 mg total) by mouth 4 times daily (every 6 hours) as needed for moderate pain or severe pain. Max Daily Amount: 20 mg 12 tablet 12/31/2020 Active Active Problems No known active problems Immunizations Immunization Administration Dates Next Due Covid-19 MRNA Vaccine - Pfiz er 12+ (Purple Cap) 02/16/2021,06/27/2020,06/03/2020 Social History Tobacco Use Types Packs/Day Years Used Date Smoking Tobacco: Never Smokeless Tobacco: Never Alcohol Use Standard Drinks/Week Comments Not Currently 0 (1 standard drink = 0.6 oz pur e alcohol) Comments Unknown Sex and Gender Information Value Date Recorded Sex Assigned at Not on file Legal Sex Female 5:27 PM EDT Gender Identity Not on file Sexual Orientation Not on file Plan of Treatment Health Maintenance Due Date Last Done Comments Advance Care Planning 1945 DTaP/Tdap/Td Vaccines (1 - Tdap) 11/10/1962 Pneumococcal Vaccines 50+ (1 of 1 - PCV) 11/10/1993 Zoster (Shingles) Vaccine (1 of 2) 11/10/1993 RSV Vaccine 50 years and older and Patients (1 - 1-dose 75+ series) 11/10/2018 COVID-19 Vaccine (2024-2 6 season) 2024 02/16/2021, 06/27/2020, 06/03/2020 Hepatitis B Vaccines Aged Out No long er eligible based on patient's age to complete this topic Care Teams Hand Binder Cutter Relationship Specialty Start Date End Date Nimisha Pastor [address] [place] [id number] PCP - General 04/02/20
--- OUTSIDE RECORDS SUMMARY | 2025-04-14 22:47 | XMS_ITS | Encounter Summary ---
Author Organization [facility] Address [address] [place] [address] Care Team Providers Care Ribbon Weaver Name Role Phone Srikanth De León MD Primary Care Provider [phone] Reason for Visit * Reason Onset Date Comments appointment 11/25/2021 Encounter Details Date Type Department Care Team (Late st Contact Info) Description 11/25/2021 Telephone [facility] Central Scheduling Department [address] [place] [address] Telephone Intake, Staff appointment Social History Tobacco Use Types Packs/Day Years Used Date Smoking Tobacco: Former Smokeless Tobacco: Never Comments Unknown Sex and Gender Information Value Date Recorded Sex Assigned at Not on file Legal Sex Female 3:51 AM EDT Gender Identity Not on file Sexual Orientation Not on file documented as of this encounter Miscellaneous Notes * Telephone Encounter - Whitney Emmanuel LPN - 11/25/2021 11:02 AM EDT I am assuming she wants to speak with you lol she wants carmen ppointment * Telephone Encounter - Jennifer Li - 11/25/2021 10:55 AM EDT Pt called and requested to speak with a jaci peralta She advised jaci is nurse pls follow up [phone] documented in this encounter Plan of Treatment Not on file documented as of this encounter Visit Diagnoses Not on filedocumented in this encounter Care Teams Ribbon Weaver Relationship Specialty Start Date End Date Srikanth De León MD [address] [place] [address] PCP - General 11/25/21 documented as of this encounter
[2025-04-14 23:17] VITALS: BP 141/81; PULSE 71
[2025-04-14] MEDS: dilTIAZem HCL SR 60 MG CAP.ER.12H PO (23:17)
[2025-04-14 23:21] VITALS: BP 141/81; PULSE 71; RESP 16; TEMP 36.6; O2SAT 98
--- NOTE | 2025-04-15 02:56 | PC.NURSE ---
Assumed care at 1845. Patient presents with anxious mood. Making multiple requests to staff to have personal items such as cellphone, hygiene products, and neck pillow. Reminded of unit rules and policies. Pt told t/w she had a bag of medications in her belongings. With 2 Techs present, ziplock bag of medications was retrieved. Medication inventory form completed, sent to pharmacy. Medicated per JUN. Utilized PRN Trazodone and Gabapentin. Denies current pain/discomfort. Provided warm blankets and ear plugs. Continue plan for IPLOC.
[2025-04-15 06:30] VITALS: BP 155/83; PULSE 65; RESP 18; TEMP 36.6; O2SAT 98
--- NOTE | 2025-04-15 07:28 | PC.NURSE ---
Assumed care, report received. Pt is currently sleeping. She is provided breakfast. Safety is maintained.
--- NOTE | 2025-04-15 07:38 | PHA.MEDREC ---
Pharmacy Consult ? Medication Reconciliation Pharmacy has reviewed the medication reconciliation completed by nursing.
[2025-04-15] MEDS: dilTIAZem HCL SR 60 MG CAP.ER.12H PO (10:06)
== END 2025-04-15 13:54 | disposition home or self-care (01) ==
PROVIDERS: Emergency Provider Student in an Organized Health Care Education/Training Program
DX: F32.9 Major depressive disorder, single episode, unspecified (principal); F60.9 Personality disorder, unspecified; F43.10 Post-traumatic stress disorder, unspecified; I48.0 Paroxysmal atrial fibrillation; Z79.01 Long term (current) use of anticoagulants; Z79.899 Other long term (current) drug therapy
CPT/HCPCS: 36415; 80053; 80307; 81001; 85025; 87086; 99285; S9485